=== PATIENT | female | born 2000 | race Caucasian/White ===

== ENCOUNTER 2024-05-25 08:42 | Emergency (ER) | payer SELFPAY ==
[2024-05-25 08:43] VITALS: BP 130/85; PULSE 84; RESP 20; TEMP 36.9; O2SAT 95; BMI 44.9
--- NOTE | 2024-05-25 08:45 | ECG_ITS ---
APPROVED REPORT Exam: Resting ECG HR:92 bpm ECG Measurements Heart Rate 92 AXES OH 145 P 59 QRSd 98 QRS 85 QT 340 T 37 QTc 390 Conclusion SINUS RHYTHM WITH SINUS ARRHYTHMIA NONSPECIFIC T-WAVE ABNORMALITY No STEMI Electronically signed by : PAYAM BROCK, 05/27/2024 04:43:17
--- NOTE | 2024-05-25 08:47 | HMH.EDGENADL ---
Discharge Plan Disposition Patient Disposition: Home, Self-Care Referrals Follow up/Referrals: Provider,Referral, MD [Referring] - See instructions Activity Restrictions/Add. Instructions Additional Instructions/Restrictions: Follow-up with primary care doctor. Please return the ED with any new, concerning, worsening symptoms. Clinical Impressions Clinical Impression: Psychogenic nonepileptic seizure Instructions Patient Instructions: DI for Syncope in Adults (Fainting), DI for Syncope in Children (Fainting) Print Language Print Language: [place] Discharge ED Provider: Cordell Church General Adult HPI General Chief complaint: Syncope Stated complaint: SEIZURES??? Time Seen by Provider: 05/25/24 08:47 History of Present Illness HPI narrative: This is a 23-year-old female with a history of psychogenic nonepileptic seizures who presents with a spell concerning for seizure at home. Mother witnessed it partially but patient recalls the whole event. States that she was on the phone with her boyfriend whenever she felt an episode coming on. Let herself down to the ground and did not hit her head. States that these episodes are characterized by large amplitude punching and kicking motions and biting. States that she retains awareness throughout the entire event. States that it lasted about 10 minutes and then resolved. States this episode was consistent with priors. Returned to baseline immediately after. Mother found the patient with blood on her face from tongue biting. No urinary incontinence. Called EMS for evaluation and was transported to emergency department for further care. Related Data Allergies Allergy/AdvReac Type Severity Reaction Status Date / Time Penicillins Allergy Rash Verified 05/25/24 09:[address] [facility] Disclaimer: The information contained in this section may have been updated after the patient was seen, as this information can be updated by other users. Social History Smoking Status: Current every day smoker alcohol intake: never current occupational status: other Travel in the last 8 weeks: Inside the [place] ROS Obtained: Yes All systems reviewed & no additional complaints except as documented Physical Exam General General appearance: alert and in no apparent distress Eye Eye exam: Present normal appearance, PERRL and EOMI Respiratory Respiratory exam: Present normal lung sounds bilaterally; Absent respiratory distress Cardiovascular Cardiovascular exam: Present regular rate and normal rhythm Abdominal Exam Abdominal exam: Present soft and distention; Absent tenderness, guarding or rebound Extremities Exam Extremities exam: Present normal inspection Neurological Exam Neurological exam: Present alert and oriented X3 Skin Skin exam: Present warm and dry Medical Decision Making Medical Records Medical records reviewed: Yes I reviewed the patient's medical records. Screening: Per USPSTF and CDC recommendations, given the prevalence of disease in our region, it is our hospital?s policy to screen for HIV and viral Hepatitis for all patients aged 18 and over and those with ongoing risk factors. [place] Inquiry Pt receiving controlled substance: No Vital Signs: 05/25/24 08:43 05/25/24 09:00 Temperature 98.5 F Temperature Source Oral Pulse Rate 70 Pulse Rate [Left Radial] 84 Respiratory Rate 20 14 Blood Pressure 115/77 Blood Pressure [Right Arm] 130/85 Blood Pressure Mean [Right Arm] 100 02 Sat by Pulse Oximetry 95 97 Oxygen Delivery Method Room Air Room Air ECG Data Tracing #1: I reviewed this ECG and interpreted as documented below: Sinus rhythm with sinus arrhythmia at a rate of 92, QTc 390, no STEMI Medical Decision Narrative: This is a 23-year-old female with a history of nonepileptic seizures who presents for evaluation of a spell concerning for seizure. On arrival, patient is afebrile, nontachycardic, hemodynamically stable, GCS 15, no focal neurological deficits. Differential diagnosis includes but is not limited to psychogenic nonepileptic seizures, epileptic seizures, arrhythmia. EKG was obtained upon arrival and independently interpreted by me as above. Features of patient's episode are consistent with nonepileptic seizures. Patient has also had EEG in the past to confirm nonepileptic seizures. Discussed with patient and mother who are reassured and patient was ultimately discharged to follow-up with PCP. No indication for CT imaging as patient has had multiple scans in the past which were unremarkable. No other indication for laboratory workup as patient was otherwise asymptomatic. Critical Care Critical Care Time Critical Care Time: No
--- NOTE | 2024-05-25 08:50 | PC.NURSE ---
BL seizure pads placed on ED stretcher. Pt hooked to monitor.
[2024-05-25 09:00] VITALS: BP 115/77; PULSE 70; RESP 14; O2SAT 97
[2024-05-25 09:15] VITALS: BP 115/77; PULSE 78; RESP 20; TEMP 36.8; O2SAT 98
== END 2024-05-25 09:16 | disposition home or self-care (01) ==
PROVIDERS: Emergency Provider Student in an Organized Health Care Education/Training Program; PCP Nurse Practitioner Family
DX: F44.5 Conversion disorder with seizures or convulsions (principal)
CPT/HCPCS: 93005; 99283

== ENCOUNTER 2024-11-07 12:00 | Emergency (ER) | payer OTHER, SELFPAY ==
[2024-11-07] VITALS (10 sets, daily range): BP systolic 115–136; BP diastolic 76–97; PULSE 77–98; RESP 13–18; TEMP 36.9; O2SAT 98–100; BMI 38.4
--- OUTSIDE RECORDS SUMMARY | 2024-11-07 12:07 | XMS_ITS | Encounter Summary ---
Author Organization [facility] Address [address] [place] [address] Care Team Providers Care Staff Research Scientist Name Role Phone Caty Neil APRN Primary Care Provider Encounter Details Date Type Department Care Team (Late st Contact Info) Description 10/13/2023 Community [facility] [address] [place] [address] Carley Hodges, DO [address] [place] [address] [address] [place] [address] Social History Tobacco Use Types Packs/Day Years Used Date Smoking Tobacco: Passive Smo ke Exposure - Never Smoker Comments Unknown Sex and Gender Information Value Date Recorded Sex Assigned at Not on file Legal Sex Female 8:20 PM EDT Gender Identity Not on file Sexual Orientation Not on file documented as of this encounter Plan of Treatment Not on file documented as of this encounter Visit Diagnoses Not on filedocumented in this encounter Care Teams Staff Research Scientist Relationship Specialty Start Date End Date Caty Neil APRN [address] [place] [address] PCP - General 09/19/20 documented as of this encounter
--- OUTSIDE RECORDS SUMMARY | 2024-11-07 12:07 | XMS_ITS | Encounter Summary ---
Author Organization [facility] Address [address] [place] [address] Care Team Providers Care Delinquency Prevention Officer Name Role Phone Caty Neil APRN Primary Care Provider [phone] Reason for Referral * Consultation (Routine) - Authorized Specialty Diagnoses / Procedures Referred By Jennie t Referred To Contact Psychiatry Diagnoses Conversion disorder with seizures or convulsions Sofie Anglin APRN [address] [place] [address] Phone: tel: fax: Referral ID Status Reason Start Date Expiration Date Visits Requested Visits Authorized [id number] Authorized Specialty Services Required 10/13/2023 04/13/2025 1 1 Encounter Details Date Type Department Care Team (Late st Contact Info) Description 10/13/2023 Community [facility] [address] [place] [address] Sofie Anglin APRN [address] [place] [address] 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) Social History Tobacco Use Types Packs/Day Years Used Date Smoking Tobacco: Passive Smo ke Exposure - Never Smoker Comments Unknown Sex and Gender Information Value Date Recorded Sex Assigned at Not on file Legal Sex Female 8:20 PM EDT Gender Identity Not on file Sexual Orientation Not on file documented as of this encounter Plan of Treatment Scheduled Referrals Name Type Priority Associated Diagnoses Order Schedule Ambulatory referral to Psychiatry Outpatient Referral Routine Conversion disorder with seizures or convulsions 1 Occurrences starting 10/13/2023 until 04/13/2025 documented as of this encounter Visit Diagnoses Diagnosis Conversion disorder with seizures or convulsions- Primary documented in this encounter Care Teams Delinquency Prevention Officer Relationship Specialty Start Date End Date Caty Neil APRN [address] [place] [address] PCP - General 09/19/20 documented as of this encounter
--- OUTSIDE RECORDS SUMMARY | 2024-11-07 12:07 | XMS_ITS | Clinical Summary ---
Author Organization Healthcare Address [address] [place] [address] Care Team Providers Care Senior Logistics Manager Name Role Phone Caty Neil APRN Primary Care Provider [phone] Encounters Date Type Department Care Team Description 09/19/2024 Telephone [facility] [address] [place] [address] Stevo Liz, PhD from Last 3 Months Family History Medical History Relation Name Comments COPD Other 1 Diabetes Other 2 Hypertension Other 3 Relation Name Status Comments Other 1 Other 2 Other 3 Social History Tobacco Use Types Packs/Day Years Used Date Smoking Tobacco: Passive Smo ke Exposure - Never Smoker Comments Unknown Sex and Gender Information Value Date Recorded Sex Assigned at Not on file Legal Sex Female 8:20 PM EDT Gender Identity Not on file Sexual Orientation Not on file Last Filed Vital Signs Vital Sign Reading Time Taken Comments Blood Pressure 112/77 12/26/2019 1:05 PM EDT Pulse 81 12/26/2019 1:05 PM EDT Temperature 36.6 C (97.9 F) 12/26/2019 1:05 PM EDT Respiratory Rate - - Oxygen Saturation - - Inhaled Oxygen Concentration - - Weight 101 kg (223 lb 5.2 oz) 12/26/2019 1:05 PM EDT Height 166.3 cm (5' 5.47 ) 12/26/2019 1:05 PM ED T Body Mass Index 36.63 12/26/2019 1:05 PM EDT Plan of Treatment Health Maintenance Due Date Last Done Comments [facility]-Depression Screening 2002 [facility]-/Child/Adol SDOH Screenings 2002 [facility]-Varicella Vaccines (1 of 2 - 13+ 2-dose series) 12/25/2015 HPV Vaccines (1 - 3-dose series) 2017 [facility]- SDOH Screenings 2020 [facility]-Adult SDOH Screenings 2020 [facility]-DTaP,Tdap,and Td Vaccine s (1 - Tdap) 2021 [facility]-Hepatitis B Vaccines (1 of 3 - 19+ 3-dose series) 2021 [facility]-Pap Smear 12/25/2023 [id number] Vaccine (1 - 20 24-25 season) 2024 [facility]-Influenza Vaccine (Seas[place] n Ended) 2025 02/09/2022 [facility]-Zoster Vaccines (1 of 2) 2052 [facility]-HIB Vaccines Aged Out No longer e ligible based on patient's age to complete this topic [facility]-Hepatitis A Vaccines Aged Out No longer eligible based on patient's age to complete this topic [facility]-IPV Vaccines Aged Out No longer e ligible based on patient's age to complete this topic [facility]-Pneumococcal Vaccine: Pediatrics (0 to 5 Years) and At-Risk Patients (6 to 49 Years) Aged Out No long er eligible based on patient's age to complete this topic [facility]-Rotavirus Vaccines Aged Out No lo nger eligible based on patient's age to complete this topic Insurance [employer] [facility] MEDICAID Care Teams Senior Logistics Manager Relationship Specialty Start Date End Date Caty Neil APRN [address] [place] [address] PCP - General 09/19/20
--- OUTSIDE RECORDS SUMMARY | 2024-11-07 12:07 | XMS_ITS | Encounter Summary ---
Author Organization [facility] Address [address] [place] [address] Care Team Providers Care Gear Design Engineer Name Role Phone Caty Neil APRN Primary Care Provider Encounter Details Date Type Department Care Team (Late st Contact Info) Description 09/19/2024 Telephone [facility] [address] [place] [address] Stevo Liz, PhD [address] [place] [address] Social History Tobacco Use Types Packs/Day Years Used Date Smoking Tobacco: Passive Smo ke Exposure - Never Smoker Comments Unknown Sex and Gender Information Value Date Recorded Sex Assigned at Not on file Legal Sex Female 8:20 PM EDT Gender Identity Not on file Sexual Orientation Not on file documented as of this encounter Miscellaneous Notes * Telephone Encounter - Germán Singh - 09/19/2024 2:01 PM EDT Called patient to confirm 5-19 neuropsych appt. No ans, recording says not available now. documented in this encounter Plan of Treatment Not on file documented as of this encounter Visit Diagnoses Not on filedocumented in this encounter Care Teams Gear Design Engineer Relationship Specialty Start Date End Date Caty Neil APRN [address] [place] [address] PCP - General 09/19/20 documented as of this encounter
--- NOTE | 2024-11-07 12:45 | PC.NURSE ---
pt voiced she does not want seizure pads placed and PA was ok with decision
--- NOTE | 2024-11-07 12:51 | CT_ITS ---
PROCEDURE INFORMATION: Exam: CT Head Without Contrast Exam date and time: 11/07/2024 2:12 PM Age: 23 years old Clinical indication: Condition or disease; Convulsions or seizures; Additional info: Seizure TECHNIQUE: Imaging protocol: Computed tomography of the head without contrast. Radiation optimization: All CT scans at this facility use at least one of these dose optimization techniques: automated exposure control; mA and/or kV adjustment per patient size (includes targeted exams where dose is matched to clinical indication); or iterative reconstruction. COMPARISON: No relevant prior studies available. FINDINGS: Brain: Normal. No hemorrhage. Unremarkable white matter. No mass effect. Cerebral ventricles: No ventriculomegaly. Paranasal sinuses: Visualized sinuses are unremarkable. No fluid levels. Mastoid air cells: Visualized mastoid air cells are well aerated. Bones: Unremarkable. No acute fracture. Soft tissues: Unremarkable. IMPRESSION: No acute intracranial abnormality.
--- NOTE | 2024-11-07 13:06 | ED_ITS ---
<Statement entered by Giuseppe Schultz MD - 11/07/24 17:36> I was consulted by the AGATA, and we discussed the complexity of problems being addressed. I approved the treatment and management plan for this patient's care in the emergency department, thus performing a substantial portion of the medical decision making. I independently evaluated and performed a physical exam on this patient. likely PNES vs anxiety attacks as is completely aware during episodes, no post-ictal. reassuring imaging and labs today... She has follow-up with neurologist outpatient. Her seizure precautions per [facility] law. Give her neurology follow-up appears well. Strict return precautions were discussed Giuseppe Schultz MD Discharge Plan Disposition Patient Disposition: Home, Self-Care Prescriptions Prescriptions: New levetiracetam [Keppra] 500 mg tablet 500 mg PO BID Qty: 14 0RF No Action phentermine 37.5 mg tablet PO DAILY Patient Comments: TAKE ONE TABLET BY MOUTH EVERY DAY BEFORE breakfast Referrals Follow up/Referrals: Tania Mckeon APRN [Primary Care Provider, Medical] - See instructions Clinical Impressions Clinical Impression: Seizure disorder Stand Alone Forms Stand Alone Forms: Work/School Release Instructions Patient Instructions: DI for Seizure Disorder -- Adult Print Language Print Language: Icelandic Discharge ED Provider: Giuseppe Schultz General Adult HPI <Tania Mckeon (ED)DHARMESH - Last Filed: 11/07/24 17:12> General Chief complaint: Headache Stated complaint: AO 11/06/24. 45 min seizure. Severe head/body pain Time Seen by Provider: 11/07/24 12:25 Mode of Arrival: Ambulatory Source of Information: Patient Description of Symptoms (Recalled from ER Triage Doc. by RN): PT presents to the ED for evaluation of a headache. PT stated she had a 45 minute seizure last night. Pt stated it was witnessed, Stated that she was seen banging her head on floor. Denies blood thinners. Denies daily meds r/t seizures. PT rates pain 11/15. PT stated she took 500mg Tylenol and 500mg Ibuprofen. History of Present Illness HPI narrative: 23-year-old female presents to the ED today for complaint of having a seizure at about 4 AM. She states that lasted 45 minutes. She has been having night terrors and says this has a lot to do with her having seizures. She also is having manic bipolar episodes and says this is a problem as well. She has been under a lot of stress and says stress causes her seizures. She says it was witnessed and she was having a violent seizure. She says typically her seizures are not violent if they are silent. She does not take daily medications for seizures but has been having seizures since the beginning of October at least once a week. She relates this to stress at work or heat. She denies any postictal. Recently with her seizures. She says she comes right out of them and gets up and walks around like she is normal. She denies recent illness. She has been seeing neurologist that have not given her any seizure medications. She has a neurology appointment with [facility] in January. Related Data Home Medications ?Medication ?Instructions ?Recorded ?Confirmed phentermine 37.5 mg tablet mg PO DAILY 10/25/24 Previous Rx's ?Medication ?Instructions ?Recorded levetiracetam 500 mg tablet 500 mg PO BID #14 tabs 07/03 ([facility]) Allergies Allergy/AdvReac Type Severity Reaction Status Date / Time Penicillins Allergy Rash Verified 10/25/24 16:37 [facility] <Tania Mckeon (ED), [place] LO DRIVER - Last Filed: 11/07/24 17:12> [facility] Disclaimer: The information contained in this section may have been updated after the patient was seen, as this information can be updated by other users. Social History Smoking Status: Current every day smoker alcohol intake: never current occupational status: other Travel in the last 8 weeks?: Inside the [place] Have you lived/traveled outside US in past 30 days?: No Contact w/someone who lives/traveled outside US past 30 days?: No Exposure to someone with infectious disease in past 14 days?: No Do you have a fever (greater than 100.4 F or 38 C)?: No Have you tested positive for COVID-19?: No Exposed to someone with COVID-19 in past 14 days?: No Do you have a sore throat?: No Do you have a cough?: No Do you have any weakness?: No Do you have any diarrhea?: No Are you experiencing any unusual bleeding?: No Do you have any muscle aches/pain?: No Do you have any abdominal pain?: No Are you experiencing loss of taste or smell?: No <Tania Kilmadie (ED), [place] LO DRIVER - Last Filed: 11/07/24 17:12> ROS Obtained: Yes Systems reviewed as appropriate & no additional complaints except as documented Constitutional Constitutional: Reports as per HPI Physical Exam <Tania Kilmadie (ED), [place] LO DRIVER - Last Filed: 11/07/24 17:12> General General appearance: alert and in no apparent distress Head Head exam: atraumatic and normocephalic Eye Eye exam: Present PERRL and EOMI ENT ENT exam: Present normal oropharynx and mucous membranes moist Neck Neck exam: Present normal inspection, full ROM and trachea midline Chest Chest inspection: Present normal inspection Respiratory Respiratory exam: Present normal lung sounds bilaterally Cardiovascular Cardiovascular exam: Present regular rate, normal rhythm, normal heart sounds, +S1 and +S2 Abdominal Exam Abdominal exam: Present soft and normal bowel sounds Extremities Exam Extremities exam: Present normal inspection, full ROM and normal capillary refill Neurological Exam Neurological exam: Present alert, oriented X3 and normal gait Skin Skin exam: Present warm, dry and intact Medical Decision Making <Tania Popeyemadie (ED), [place] LO DRIVER - Last Filed: 11/07/24 17:12> Medical Records Medical records reviewed: Yes I reviewed the patient's medical records. Screening: Per USPSTF and CDC recommendations, given the prevalence of disease in our region, it is our hospital?s policy to screen for HIV and viral Hepatitis for all patients aged 18 and over and those with ongoing risk factors. Colby Inquiry Pt receiving controlled substance: No Colby was queried for this patient: No Vital Signs: 11/07/24 12:13 11/07/24 12:30 11/07/24 13:00 Temperature 98.4 F Temperature Source Oral Pulse Rate 93 H 86 Pulse Rate [Right] 98 H Respiratory Rate 16 14 16 Blood Pressure 136/88 119/92 H Blood Pressure [Right Arm] 124/97 H Blood Pressure Mean 96 Blood Pressure Mean [Right Arm] 106 02 Sat by Pulse Oximetry 98 100 99 Oxygen Delivery Method Room Air Room Air 11/07/24 13:30 11/07/24 14:00 11/07/24 14:30 Temperature Temperature Source Pulse Rate 87 85 79 Pulse Rate [Right] Respiratory Rate 13 15 16 Blood Pressure 126/85 132/94 H 117/88 Blood Pressure [Right Arm] Blood Pressure Mean Blood Pressure Mean [Right Arm] 02 Sat by Pulse Oximetry 98 100 100 Oxygen Delivery Method Room Air Room Air Room Air 11/07/24 15:00 11/07/24 15:30 11/07/24 16:00 Temperature Temperature Source Pulse Rate 92 H 77 77 Pulse Rate [Right] Respiratory Rate 16 14 16 Blood Pressure 123/82 115/76 135/91 H Blood Pressure [Right Arm] Blood Pressure Mean Blood Pressure Mean [Right Arm] 02 Sat by Pulse Oximetry 99 100 100 Oxygen Delivery Method Room Air 11/07/24 17:26 Temperature 98.4 F Temperature Source Pulse Rate 77 Pulse Rate [Right] Respiratory Rate 18 Blood Pressure 135/91 H Blood Pressure [Right Arm] Blood Pressure Mean Blood Pressure Mean [Right Arm] 02 Sat by Pulse Oximetry Oxygen Delivery Method Room Air Lab Data Lab Results 11/07/24 13:38: Urine HCG, Qual Negative, Urine Opiates Screen Negative, Urine Methadone Screen Negative, Ur Barbituates Screen Negative, Ur Phencyclidine Scrn Negative, Ur Amphetamines Screen Negative, U Benzodiazepines Scrn Negative, Urine Cocaine Screen Negative, U Marijuana (THC) Screen Negative 11/07/24 13:42: Urine Color Yellow, Urine Appearance Clear, Urine pH 6.5, Ur Specific [place] 1.025, Urine Protein Negative, Urine Glucose (UA) Negative, Urine Ketones Trace, Urine Blood Negative, Urine Nitrate Negative, Urine Bilirubin Negative, Urine Urobilinogen 1.0, Ur Leukocyte Esterase Negative, Urine RBC None, Urine WBC 3-5, Ur Squamous Epith Cells 10-20, Urine Bacteria Trace 11/07/24 13:47: WBC 8.1, RBC 5.50 H, Hgb 15.8, Hct 47.8 H, MCV 86.9, MCH 28.7, MCHC 33.1, RDW 13.2, Plt Count 379, MPV 10.1, Neut % (Auto) 54.4, Lymph % (Auto) 35.6, [place] % (Auto) 7.4, Eos % (Auto) 1.5, Baso % (Auto) 0.9, Neut # (Auto) 4.4, Lymph # (Auto) 2.9, [place] # (Auto) 0.6, Eos # (Auto) 0.1, Baso # (Auto) 0.1, Sodium 141, Potassium 3.9, Chloride 101, Carbon Dioxide 32 H, Anion Gap 11.9, BUN 8, Creatinine 0.80, Estimated Creat Clear 184, Estimated GFR 91, Est GFR ( Amer) 110, Glucose 93, Calcium 10.0, Magnesium 2.1, Total Bilirubin 1.0, AST 43 H, ALT 57, Alkaline Phosphatase 57, Total Creatine Kinase 209 H, Total Protein 7.9, Albumin 4.6, Globulin 3.3 H, Albumin/Globulin Ratio 1.4, Lipase 67 11/07/24 13:47 11/07/24 13:47 Orders (Tests/Meds): ORDERS Category Date Time Status CT head/brain wo con Stat Cat Scan 11/07/24 12:51 Completed CBC [Complete Blood Count Auto Diff] Stat Lab 11/07/24 13:47 Completed Comprehensive Metabolic Panel Stat Lab 11/07/24 13:47 Completed Creatine Kinase Stat Lab 11/07/24 13:47 Completed Drug Screen,Urine Stat Lab 11/07/24 13:38 Completed Lipase Stat Lab 11/07/24 13:47 Completed Magnesium Stat Lab 11/07/24 13:47 Completed Urinalysis and Microscopic Stat Lab 11/07/24 13:42 Completed Urine , HCG Qual. Stat Lab 11/07/24 13:38 Completed Medical Decision Narrative: patient is a 23-year-old female presenting to the emergency department for evaluation of seizure she had this morning at 4 AM. Patient is hemodynamically stable and nontoxic-appearing upon arrival, afebrile. Differential diagnosis includes seizure disorder, schizophrenia versus manic bipolar psychosis episode. Workup will be conducted with hematologic labs, specific imaging. Initial inventions include crystalloid bolus, analgesics. Initial workup reviewed by [place] hematologic labs are remarkable for nothing acute. Please see formal radiology report for full read. Upon repeat evaluation patient's pain is improved. Patient has follow-up with neurology in January. She is to keep that appointment. Patient safe for discharge home. <Giuseppe Schultz MD - Last Filed: 11/07/24 17:36> Vital Signs: 11/07/24 12:13 11/07/24 12:30 11/07/24 13:00 Temperature 98.4 F Temperature Source Oral Pulse Rate 93 H 86 Pulse Rate [Right] 98 H Respiratory Rate 16 14 16 Blood Pressure 136/88 119/92 H Blood Pressure [Right Arm] 124/97 H Blood Pressure Mean 96 Blood Pressure Mean [Right Arm] 106 02 Sat by Pulse Oximetry 98 100 99 Oxygen Delivery Method Room Air Room Air 11/07/24 13:30 11/07/24 14:00 11/07/24 14:30 Temperature Temperature Source Pulse Rate 87 85 79 Pulse Rate [Right] Respiratory Rate 13 15 16 Blood Pressure 126/85 132/94 H 117/88 Blood Pressure [Right Arm] Blood Pressure Mean Blood Pressure Mean [Right Arm] 02 Sat by Pulse Oximetry 98 100 100 Oxygen Delivery Method Room Air Room Air Room Air 11/07/24 15:00 11/07/24 15:30 11/07/24 16:00 Temperature Temperature Source Pulse Rate 92 H 77 77 Pulse Rate [Right] Respiratory Rate 16 14 16 Blood Pressure 123/82 115/76 135/91 H Blood Pressure [Right Arm] Blood Pressure Mean Blood Pressure Mean [Right Arm] 02 Sat by Pulse Oximetry 99 100 100 Oxygen Delivery Method Room Air 11/07/24 17:26 Temperature 98.4 F Temperature Source Pulse Rate 77 Pulse Rate [Right] Respiratory Rate 18 Blood Pressure 135/91 H Blood Pressure [Right Arm] Blood Pressure Mean Blood Pressure Mean [Right Arm] 02 Sat by Pulse Oximetry Oxygen Delivery Method Room Air Lab Data Lab Results 11/07/24 13:38: Urine HCG, Qual Negative, Urine Opiates Screen Negative, Urine Methadone Screen Negative, Ur Barbituates Screen Negative, Ur Phencyclidine Scrn Negative, Ur Amphetamines Screen Negative, U Benzodiazepines Scrn Negative, Urine Cocaine Screen Negative, U Marijuana (THC) Screen Negative 11/07/24 13:42: Urine Color Yellow, Urine Appearance Clear, Urine pH 6.5, Ur Specific [place] 1.025, Urine Protein Negative, Urine Glucose (UA) Negative, Urine Ketones Trace, Urine Blood Negative, Urine Nitrate Negative, Urine Bilirubin Negative, Urine Urobilinogen 1.0, Ur Leukocyte Esterase Negative, Urine RBC None, Urine WBC 3-5, Ur Squamous Epith Cells 10-20, Urine Bacteria Trace 11/07/24 13:47: WBC 8.1, RBC 5.50 H, Hgb 15.8, Hct 47.8 H, MCV 86.9, MCH 28.7, MCHC 33.1, RDW 13.2, Plt Count 379, MPV 10.1, Neut % (Auto) 54.4, Lymph % (Auto) 35.6, [place] % (Auto) 7.4, Eos % (Auto) 1.5, Baso % (Auto) 0.9, Neut # (Auto) 4.4, Lymph # (Auto) 2.9, [place] # (Auto) 0.6, Eos # (Auto) 0.1, Baso # (Auto) 0.1, Sodium 141, Potassium 3.9, Chloride 101, Carbon Dioxide 32 H, Anion Gap 11.9, BUN 8, Creatinine 0.80, Estimated Creat Clear 184, Estimated GFR 91, Est GFR ( Amer) 110, Glucose 93, Calcium 10.0, Magnesium 2.1, Total Bilirubin 1.0, AST 43 H, ALT 57, Alkaline Phosphatase 57, Total Creatine Kinase 209 H, Total Protein 7.9, Albumin 4.6, Globulin 3.3 H, Albumin/Globulin Ratio 1.4, Lipase 67 Orders (Tests/Meds): ORDERS Category Date Time Status CT head/brain wo con Stat Cat Scan 11/07/24 12:51 Completed CBC [Complete Blood Count Auto Diff] Stat Lab 11/07/24 13:47 Completed Comprehensive Metabolic Panel Stat Lab 11/07/24 13:47 Completed Creatine Kinase Stat Lab 11/07/24 13:47 Completed Drug Screen,Urine Stat Lab 11/07/24 13:38 Completed Lipase Stat Lab 11/07/24 13:47 Completed Magnesium Stat Lab 11/07/24 13:47 Completed Urinalysis and Microscopic Stat Lab 11/07/24 13:42 Completed Urine , HCG Qual. Stat Lab 11/07/24 13:38 Completed Critical Care <Giuseppe Schultz MD - Last Filed: 11/07/24 17:36> Critical Care Time Critical Care Time: No
--- NOTE | 2024-11-07 13:40 | PC.NURSE ---
patient ambulatory to bathroom, provides urine sample.
[2024-11-07 13:53] LABS: Microscopic, Urine URINE MICROSCOPIC (MICROSCOPIC)
[2024-11-07 13:59] LABS: Color,Urine YELLOW (Yellow); Glucose,Urine (UA) Negative (Negative); Ketones,Urine TRACE (Negative); Leukocyte Esterase,Urine Negative (Negative); PH,Urine 6.5 (5.0-8.5); Protein,Urine Negative (Negative); Specific Gravity, Urine 1.025 (1.005-1.030); Urobilinogen,Urine 1.0 EU/dl (0.2)
[2024-11-07 14:00] LABS: Urine Pregnancy, HCG Qual. Negative (Negative)
[2024-11-07 14:01] LABS: Albumin Level 4.6 g/dl (3.5-5.0); Chloride 101 mmol/L (98-107); Hematocrit 47.8 % (37.0-47.0); Hemoglobin 15.8 g/dL (12.2-16.2); Immature Granulocytes % 0.2 %; Mean Corpuscular HGB Conc 33.1 g/dL (31.8-35.4); Mean Corpuscular Hemoglobin 28.7 pg (27.0-31.2); Mean Corpuscular Volume 86.9 fl (81-99); Nucleated Red Blood Cells % 0 %; Platelet Count 379 K/mm3 (142-424); Red Blood Count 5.50 M/mm3 (4.20-5.40); Red Cell Distribution Width-SD 42.3 fL; Sodium 141 mmol/L (136-145); White Blood Count 8.1 K/mm3 (4.8-10.8)
[2024-11-07 14:02] LABS: Potassium 3.9 mmoL/L (3.5-5.1)
[2024-11-07 14:03] LABS: Creatine Kinase 209 U/L (30-135)
[2024-11-07 14:04] LABS: Alanine Aminotransferase 57 U/L (12-78); Albumin/Globulin Ratio 1.4 (1.1-1.8); Alkaline Phosphatase 57 U/L (38-126); Anion Gap 11.9 mEq/L (5-15); Aspartate Amino Transferase 43 U/L (14-36); Bilirubin,Total 1.0 mg/dl (0.2-1.3); Blood Urea Nitrogen 8 mg/dl (7-17); Calcium 10.0 mg/dl (8.4-10.2); Carbon Dioxide 32 mmol/L (22.0-30.0); Creatinine Clearance Estimated 184 mL/min (50-200); Creatinine,Serum 0.80 mg/dl (0.52-1.04); Estimated Glomerular Filt Rate 91 ml/min (>60); GFR (African American) 110 ML/MIN (>60); Globulin 3.3 g/dL (1.3-3.2); Glucose 93 mg/dl (74-100); Lipase 67 U/L (23-300); Total Protein,Serum 7.9 g/dl (6.3-8.2)
[2024-11-07 14:04] LABS: Bilirubin,Urine Negative (Negative)
[2024-11-07 14:05] LABS: Magnesium 2.1 mg/dl (1.6-2.3)
[2024-11-07 14:07] LABS: Bacteria,Urine Trace /lpf
[2024-11-07 14:11] LABS: Amphetamine/Metha Screen,Urine Negative ng/ml (<1000); Benzodiazepines Screen,Urine Negative ng/ml (<200)
[2024-11-07 14:12] LABS: Barbiturates Screen,Urine Negative ng/ml (<200)
[2024-11-07 14:14] LABS: Methadone Screen,Urine Negative ng/ml (<300)
[2024-11-07 14:15] LABS: Opiate Screen,Urine Negative ng/ml (<300); Phencyclidine Screen,Urine Negative ng/ml (<25)
--- NOTE | 2024-11-07 15:50 | PC.NURSE ---
I called and spoke with radiology to check on the pts scans. They are sending a request to the radiologist.
== END 2024-11-07 17:27 | disposition home or self-care (01) ==
PROVIDERS: Emergency Provider Emergency Medicine; PCP Nurse Practitioner
DX: R56.9 Unspecified convulsions (principal); R51.9 Headache, unspecified
CPT/HCPCS: 70450; 80053; 80307; 81001; 81025; 82550; 83690; 83735; 85025; 99284

== ENCOUNTER 2024-11-13 10:53 | Emergency (ER) | payer OTHER, SELFPAY ==
[2024-11-13 10:55] VITALS: BP 115/85; PULSE 90; RESP 20; TEMP 36.8; O2SAT 100; BMI 20.7
--- OUTSIDE RECORDS SUMMARY | 2024-11-13 10:57 | XMS_ITS | Encounter Summary ---
Author Organization [facility] Address [address] [place] [address] Care Team Providers Care Assistant Shift Supervisor Name Role Phone Caty Neil APRN Primary Care Provider [phone] Reason for Referral * Consultation (Routine) - Authorized Specialty Diagnoses / Procedures Referred By Jennie t Referred To Contact Psychiatry Diagnoses Conversion disorder with seizures or convulsions Sofie Anglin APRN [address] [place] [address] Phone: tel: fax: Referral ID Status Reason Start Date Expiration Date Visits Requested Visits Authorized [id number] Authorized Specialty Services Required 10/13/2023 04/13/2025 1 1 Encounter Details Date Type Department Care Team (Late st Contact Info) Description 10/13/2023 Community [facility] [address] [place] [address] Sofie Anglin APRN [address] [place] [address] Conversion disorder with seizures or [...] Primary documented in this encounter Care Teams Assistant Shift Supervisor Relationship Specialty Start Date End Date Caty Neil APRN [address] [place] [address] PCP - General 09/19/20 documented as of this encounter
--- OUTSIDE RECORDS SUMMARY | 2024-11-13 10:57 | XMS_ITS | Encounter Summary ---
Author Organization [facility] Address [address] [place] [address] Care Team Providers Care Claims Adjustor Name Role Phone Caty Neil APRN Primary Care Provider Encounter Details Date Type Department Care Team (Late st Contact Info) Description 10/13/2023 [facility] [address] [place] [address] Carley Hodges, DO [address] [place] [address] [address] [place] [address] Social History Tobacco Use Types [...] on filedocumented in this encounter Care Teams Claims Adjustor Relationship Specialty Start Date End Date Caty Neil APRN [address] [place] [address] PCP - General 09/19/20 documented as of this encounter
--- OUTSIDE RECORDS SUMMARY | 2024-11-13 10:57 | XMS_ITS | Clinical Summary ---
Author Organization Healthcare Address [address] [place] [address] Care Team Providers Care Slide Forming Machine Tender Name Role Phone Caty Neil APRN Primary Care Provider [phone] Encounters Date Type Department Care Team Description 09/19/2024 Telephone [facility] [address] [place] [address] Stevo Liz, PhD from Last [...] 19+ 3-dose series) 2021 [facility]-Pap Smear 12/25/2023 [id number] Vaccine (1 - 20 24-25 season) 2024 [facility]-Influenza Vaccine (#1) 2025 02/09/2022 [facility]-Zoster Vaccines (1 of 2) [...] age to complete this topic Insurance [employer] [facility] MEDICAID Care Teams Slide Forming Machine Tender Relationship Specialty Start Date End Date Caty Neil APRN [address] [place] [address] PCP - General 09/19/20
--- OUTSIDE RECORDS SUMMARY | 2024-11-13 10:57 | XMS_ITS | Encounter Summary ---
Author Organization [facility] Address [address] [place] [address] Care Team Providers Care Aquaculture Worker Name Role Phone Caty Neil APRN Primary Care Provider [phone] Encounter Details Date Type Department Care Team (Late st Contact Info) Description 09/19/2024 Telephone [facility] [address], [address] [place] [address] Stevo Liz, PhD [address] [place] [address] Social History Tobacco Use Types [...] on filedocumented in this encounter Care Teams Aquaculture Worker Relationship Specialty Start Date End Date Caty Neil APRN [address] [place] [address] PCP - General 09/19/20 documented as of this encounter
--- NOTE | 2024-11-13 10:59 | HMH.EDGENADL ---
Discharge Plan Disposition Patient Disposition: Home, Self-Care Prescriptions Prescriptions: No Action phentermine 37.5 mg tablet PO DAILY Patient Comments: TAKE ONE TABLET BY MOUTH EVERY DAY BEFORE breakfast levetiracetam [Keppra] 500 mg tablet 500 mg PO BID Qty: 14 0RF Referrals Follow up/Referrals: Norma Spaulding APRN [Primary Care Provider, Medical] - See instructions Activity Restrictions/Add. Instructions Additional Instructions/Restrictions: No emergent medical condition identified today please continue to follow-up with your psychiatrist and neurologist outpatient. Clinical Impressions Clinical Impression: Psychogenic nonepileptic seizure Stand Alone Forms Stand Alone Forms: Work/School Release Print Language Print Language: Irish Discharge ED Provider: Guanakito Nava General Adult HPI General Stated complaint: Seizure Time Seen by Provider: 11/13/24 10:56 History of Present Illness HPI narrative: Patient is a 23-year-old female with a long history of psychogenic nonepileptic seizures she states she has had MRIs in the past and CAT scans and EEG monitors and has been diagnosed with this for many years. She presents today with another episode today. She is now at her baseline she denies any headache denies any significant head injury she denies any neurologic symptoms changes in medications or drug use etc. She states she just needs a note for work. Related Data Home Medications ?Medication ?Instructions ?Recorded ?Confirmed phentermine 37.5 mg tablet mg PO DAILY 10/25/24 10/25/24 Previous Rx's ?Medication ?Instructions ?Recorded levetiracetam 500 mg tablet 500 mg PO BID #14 tabs 11/07/24 (Keppra) Allergies Allergy/AdvReac Type Severity Reaction Status Date / Time Penicillins Allergy Rash Verified 10/25/24 16:37 [facility] Disclaimer: The information contained in this section may have been updated after the patient was seen, as this information can be updated by other users. Social History Smoking Status: Current every day smoker alcohol intake: never current occupational status: other Travel in the last 8 weeks?: Inside the [place] Have you lived/traveled outside US in past 30 days?: No Contact w/someone who lives/traveled outside US past 30 days?: No Exposure to someone with infectious disease in past 14 days?: No Do you have a fever (greater than 100.4 F or 38 C)?: No Have you tested positive for COVID-19?: No Exposed to someone with COVID-19 in past 14 days?: No Do you have a sore throat?: No Do you have a cough?: No Do you have any weakness?: No Do you have any diarrhea?: No Are you experiencing any unusual bleeding?: No Do you have any muscle aches/pain?: No Do you have any abdominal pain?: No Are you experiencing loss of taste or smell?: No ROS Obtained: Yes All systems reviewed & no additional complaints except as documented Physical Exam General General appearance: alert and in no apparent distress Respiratory Respiratory exam: Present normal lung sounds bilaterally Cardiovascular Cardiovascular exam: Present regular rate Neurological Exam Neurological exam: Present alert, oriented X3, CN II-XII intact, normal gait and reflexes normal; Absent motor sensory deficit Medical Decision Making Medical Records Screening: Per USPSTF and CDC recommendations, given the prevalence of disease in our region, it is our hospital?s policy to screen for HIV and viral Hepatitis for all patients aged 18 and over and those with ongoing risk factors. Colby Inquiry Pt receiving controlled substance: No Medical Decision Narrative: Very well-appearing 23-year-old female with GCS of 15 normal neurologic exam presents today with an episode consistent with her psychogenic nonepileptic seizures for which she has been extensively evaluated in the past. She is [place] CT head negative and Nexus negative there is no evidence of any significant trauma no indication for any CT imaging from an emergency standpoint today also she is at her normal state of health and has not had any medication changes nausea vomiting diarrhea or any other suspicion to suggest that she may have laboratory abnormalities therefore blood work is not indicated. Patient was given a work note and discharged in a stable condition with advised to follow-up with primary care doctor and neurologist. Critical Care Critical Care Time Critical Care Time: No
[2024-11-13 11:00] VITALS: BP 118/78; PULSE 68; RESP 18; TEMP 36.8; O2SAT 98
== END 2024-11-13 11:07 | disposition home or self-care (01) ==
PROVIDERS: Emergency Provider Student in an Organized Health Care Education/Training Program; PCP Nurse Practitioner Family
DX: F44.5 Conversion disorder with seizures or convulsions (principal); F17.210 Nicotine dependence, cigarettes, uncomplicated
CPT/HCPCS: 99283

== ENCOUNTER 2024-11-16 19:21 | Emergency (ER) | payer OTHER, SELFPAY ==
--- OUTSIDE RECORDS SUMMARY | 2024-11-16 19:48 | XMS_ITS | Encounter Summary ---
Author Organization [facility] Address [address] [place] [address] Care Team Providers Care Hoop Machine Operator Name Role Phone Caty Neil APRN Primary Care Provider Reason for Referral * Consultation (Routine) - Authorized Specialty Diagnoses / Procedures Referred By Jennie t Referred To Contact Psychiatry Diagnoses Conversion disorder with seizures or convulsions Sofie Anglin APRN [address] [place] [address] Phone: tel: fax: Referral ID Status Reason Start Date Expiration Date Visits Requested Visits Authorized [id number] Authorized Specialty Services Required 10/13/2023 04/13/2025 1 1 Encounter Details Date Type Department Care Team (Late st Contact Info) Description 10/13/2023 Community [facility] [address] [place] [address] Sofie Anglin APRN [address] [place] [address] Conversion disorder with seizures or [...] Primary documented in this encounter Care Teams Hoop Machine Operator Relationship Specialty Start Date End Date Caty Neil APRN [address] [place] [address] PCP - General 09/19/20 documented as of this encounter
--- OUTSIDE RECORDS SUMMARY | 2024-11-16 19:48 | XMS_ITS | Clinical Summary ---
Author Organization Healthcare Address [address] [place] [address] Care Team Providers Care Engine Repairer Production Name Role Phone Caty Neil APRN Primary Care Provider [phone] Encounters Date Type Department Care Team Description 09/19/2024 Telephone [facility] [address] [place] [address] Stevo Liz, PhD from Last [...] Date Last Done Comments [facility]-Depression Screening 2002 [facility]-Infant/Child/Adol SDOH Screenings 2002 [facility]-Varicella Vaccines (1 of 2 - 13+ 2-dose series) 12/25/2015 HPV Vaccines (1 - 3-dose series) 2017 [facility]- SDOH Screenings 2020 [facility]-Adult SDOH Screenings 2020 [facility]-DTaP,Tdap,and Td Vaccine s (1 - Tdap) 2021 [facility]-Hepatitis B Vaccines (1 of 3 - 19+ 3-dose series) 2021 [facility]-Pap Smear 12/25/2023 [id number] Vaccine (1 - 20 24-25 season) 2024 [...] age to complete this topic Insurance [facility] [facility] MEDICAID Care Teams Engine Repairer Production Relationship Specialty Start Date End Date Caty Neil APRN [address] [place] [address] PCP - General 09/19/20
--- OUTSIDE RECORDS SUMMARY | 2024-11-16 19:48 | XMS_ITS | Encounter Summary ---
Author Organization [facility] Address [address] [place] [address] Care Team Providers Care Pigeon Fancier Name Role Phone Caty Neil APRN Primary Care Provider Encounter Details Date Type Department Care Team (Late st Contact Info) Description 10/13/2023 Community Orders Community Practice [address] [place] [address] Carley Hodges, DO [address] [place] [address] [address] [place] [address] Social History Tobacco Use Types [...] on filedocumented in this encounter Care Teams Pigeon Fancier Relationship Specialty Start Date End Date Caty Neil APRN [address] [place] [address] PCP - General 09/19/20 documented as of this encounter
--- OUTSIDE RECORDS SUMMARY | 2024-11-16 19:48 | XMS_ITS | Encounter Summary ---
Author Organization [facility] Address [address] [place] [address] Care Team Providers Care Analytical Technician Name Role Phone Caty Neil APRN Primary Care Provider [phone] Encounter Details Date Type Department Care Team (Late st Contact Info) Description 09/19/2024 Telephone [facility] [address], [address] [place] [address] Stevo Liz, PhD [address] [place] [address] Social History Tobacco Use Types [...] on filedocumented in this encounter Care Teams Analytical Technician Relationship Specialty Start Date End Date Caty Neil APRN [address] [place] [address] PCP - General 09/19/20 documented as of this encounter
[2024-11-16 19:50] VITALS: BP 140/78; PULSE 113; RESP 20; TEMP 36.7; O2SAT 100; BMI 39.3
--- NOTE | 2024-11-16 19:50 | HMH.EDGENADL ---
Discharge Plan Disposition Patient Disposition: Home, Self-Care Prescriptions Prescriptions: No Action phentermine 37.5 mg tablet PO DAILY Patient Comments: TAKE ONE TABLET BY MOUTH EVERY DAY BEFORE breakfast levetiracetam [Keppra] 500 mg tablet 500 mg PO BID Qty: 14 0RF Referrals Follow up/Referrals: Tania Mckeon APRN [Primary Care Provider, Medical] - See instructions Activity Restrictions/Add. Instructions Additional Instructions/Restrictions: Due to being evaluated emergency department for seizure-like activity today, you must stop driving immediately. Per [place] law, you must be seizure-free for at least 90 days. Please follow-up with your family doctor or your neurologist prior to then to be cleared for driving. Do not swim alone or go swimming with no duct layer helper, operate heavy machinery, or lock the bathroom door while bathing. Do not undertake activities such as water sports, climbing, or where there is injury if you were to fall. Do not bathe children by yourself Follow-up with your primary care physician for your mildly low thyroid level. I encourage you to follow-up with your primary care physician next week as well as your neurologist at their next availability. If you develop any new or worsening symptoms, or if you become concerned for your health for any reason, return to the emergency department for evaluation Clinical Impressions Clinical Impression: Psychogenic nonepileptic seizure, Low TSH level Stand Alone Forms Stand Alone Forms: Work/School Release Instructions Patient Instructions: DI for Seizure Disorder -- Adult, DI for Seizure (Not Epilepsy/Seizure Disorder), DI for Seizure Disorder -- Child Print Language Print Language: Slovenian Discharge ED Provider: Jaquan Faria Adult HPI General Chief complaint: Seizure Stated complaint: seizure,hit head Time Seen by Provider: 11/16/24 19:42 History of Present Illness HPI narrative: Juliana Ricardo is a 23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 Patient states that she often gets seizures where she will be unable to respond or move her body but will be able to hear through it. She states that normally, she feels the seizures coming, however today she did not have much of a warning. She states that she was started on a new mood stabilizer and took this during dinner. When she got up from dinner, she felt foggy and then had an episode lasting 30 to 35 minutes where she was unable to move and was fully aware of what was happening around her. She states that she was tapping her head on the ground when her family found her. She states that she threw her brother and her mother off of her during the seizure. She states that it resolved prior to arrival. She reports a mild frontal headache at this time, which she states is normal after these episodes. She reports that she has also been taking Keppra for approximately 1 week and is not sure if these medications are contributing to her seizures. Related Data Home Medications ?Medication ?Instructions ?Recorded ?Confirmed phentermine 37.5 mg tablet mg PO DAILY 10/25/24 10/25/24 Previous Rx's ?Medication ?Instructions ?Recorded levetiracetam 500 mg tablet 500 mg PO BID #14 tabs 11/07/24 (Keppra) Allergies Allergy/AdvReac Type Severity Reaction Status Date / Time Penicillins Allergy Rash Verified 10/25/24 16:37 [facility] Disclaimer: The information contained in this section may have been updated after the patient was seen, as this information can be updated by other users. Social History Smoking Status: Current every day smoker alcohol intake: never current occupational status: other Travel in the last 8 weeks?: Inside the [place] Have you lived/traveled outside US in past 30 days?: No Contact w/someone who lives/traveled outside US past 30 days?: No Exposure to someone with infectious disease in past 14 days?: No Do you have a fever (greater than 100.4 F or 38 C)?: No Have you tested positive for COVID-19?: No Exposed to someone with COVID-19 in past 14 days?: No Do you have a sore throat?: No Do you have a cough?: No Do you have any weakness?: No Do you have any diarrhea?: No Are you experiencing any unusual bleeding?: No Do you have any muscle aches/pain?: No Do you have any abdominal pain?: No Are you experiencing loss of taste or smell?: No ROS Obtained: Yes Systems reviewed as appropriate & no additional complaints except as documented Physical Exam General General appearance: alert and in no apparent distress Head Head exam: atraumatic Eye Eye exam: Present normal appearance, PERRL and EOMI ENT ENT exam: Present normal external ear exam Neck Neck exam: Present full ROM Chest Chest inspection: Present symmetric chest wall rise Respiratory Respiratory exam: Present normal lung sounds bilaterally; Absent respiratory distress Cardiovascular Cardiovascular exam: Present regular rate and normal rhythm Abdominal Exam Abdominal exam: Present soft; Absent tenderness or guarding Extremities Exam Extremities exam: Present normal inspection Back Exam Back exam: Present normal inspection Neurological Exam Neurological exam: Present alert, oriented X3 and other (GCS 15, no focal neurological deficits) Psychiatric Psychiatric exam: Present normal affect Skin Skin exam: Present warm and dry Medical Decision Making Medical Records Screening: Per USPSTF and CDC recommendations, given the prevalence of disease in our region, it is our hospital?s policy to screen for HIV and viral Hepatitis for all patients aged 18 and over and those with ongoing risk factors. Colby Inquiry Pt receiving controlled substance: No Vital Signs: 11/16/24 19:50 Temperature 98.1 F Temperature Source Oral Pulse Rate [Right] 113 H Respiratory Rate 20 Blood Pressure [Right Arm] 140/78 Blood Pressure Mean [Right Arm] 98 02 Sat by Pulse Oximetry 100 Oxygen Delivery Method Room Air Lab Data Lab Results 11/16/24 19:55: WBC 8.3, RBC 4.97, Hgb 14.9, Hct 43.4, MCV 87.3, MCH 30.0, MCHC 34.3, RDW 13.5, Plt Count 333, MPV 9.8, Neut % (Auto) 68.3, Lymph % (Auto) 23.0, [place] % (Auto) 6.4, Eos % (Auto) 1.6, Baso % (Auto) 0.5, Neut # (Auto) 5.7, Lymph # (Auto) 1.9, [place] # (Auto) 0.5, Eos # (Auto) 0.1, Baso # (Auto) 0.0, Sodium 139, Potassium 3.6, Chloride 103, Carbon Dioxide 25, Anion Gap 14.6, BUN 11, Creatinine 0.80, Estimated Creat Clear 182, Estimated GFR 91, Est GFR ( Amer) 110, Glucose 85, Calcium 9.7, TSH 0.33 L 11/16/24 19:55 11/16/24 19:55 Orders (Tests/Meds): ORDERS Category Date Time Status BMP [Basic Metabolic Panel] Stat Lab 11/16/24 19:55 Completed CBC w/Auto Diff [Complete Blood Count Auto Diff] Stat Lab 11/16/24 19:55 Completed TSH [Thyroid Stimulating Hormone] Stat Lab 11/16/24 19:55 Completed Medical Decision Narrative: Juliana Ricardo is a 23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 Patient states that she often gets seizures where she will be unable to respond or move her body but will be able to hear through it. She states that normally, she feels the seizures coming, however today she did not have much of a warning. She states that she was started on a new mood stabilizer and took this during dinner. When she got up from dinner, she felt foggy and then had an episode lasting 30 to 35 minutes where she was unable to move and was fully aware of what was happening around her. She states that she was tapping her head on the ground when her family found her. She states that she threw her brother and her mother off of her during the seizure. She states that it resolved prior to arrival. She reports a mild frontal headache at this time, which she states is normal after these episodes. She reports that she has also been taking Keppra for approximately 1 week and is not sure if these medications are contributing to her seizures. On arrival, patient is tachycardic with a heart rate of 115 bpm. Sinus rhythm on monitor. Afebrile, breathing comfortably on room air in no acute respiratory distress with appropriate oxygen saturation. Physical exam, stated above, reveals an overall well-appearing female in no distress. She is GCS 15 with no focal neurological deficits. No evidence of head trauma. She is [place] head CT and Nexus criteria negative. Differential diagnosis includes, but is not limited to: Psychogenic nonepileptic seizure, electrolyte derangement, metabolic derangement, among others. The most morbid conditions were considered and workup was based on these. Patient symptomatology is most consistent with her history of psychogenic nonepileptic seizures, however given she states that this feels slightly different from her previous ones without warning sign and she is mildly tachycardic, will obtain EKG, basic labs including CBC, BMP and TSH Hematologic labs unremarkable. Electrolytes within normal limits. Mildly low TSH but nonactionable. EKG interpreted by me personally and was unremarkable with no ST elevation or depression. Normal sinus rhythm. On reassessment, patient resting comfortably. Is felt that symptomatology is best explained by her psychogenic nonepileptic seizure history. She was encouraged to follow-up with her primary care physician next week and her neurologist as soon as possible. Seizure precautions were given. All questions were answered. She demonstrated understanding and was agreed with this plan. She is requesting a work note at this time and states that she will follow-up with her PCP on Tuesday. She was then discharged from the emergency department in stable condition. Critical Care Critical Care Time Critical Care Time: No
[2024-11-16 20:04] LABS: Hematocrit 43.4 % (37.0-47.0); Hemoglobin 14.9 g/dL (12.2-16.2); Immature Granulocytes % 0.2 %; Mean Corpuscular HGB Conc 34.3 g/dL (31.8-35.4); Mean Corpuscular Hemoglobin 30.0 pg (27.0-31.2); Mean Corpuscular Volume 87.3 fl (81-99); Nucleated Red Blood Cells % 0 %; Platelet Count 333 K/mm3 (142-424); Red Blood Count 4.97 M/mm3 (4.20-5.40); Red Cell Distribution Width-SD 42.7 fL; White Blood Count 8.3 K/mm3 (4.8-10.8)
[2024-11-16 20:13] LABS: Anion Gap 14.6 mEq/L (5-15); Blood Urea Nitrogen 11 mg/dl (7-17); Calcium 9.7 mg/dl (8.4-10.2); Carbon Dioxide 25 mmol/L (22.0-30.0); Chloride 103 mmol/L (98-107); Creatinine Clearance Estimated 182 mL/min (50-200); Creatinine,Serum 0.80 mg/dl (0.52-1.04); Estimated Glomerular Filt Rate 91 ml/min (>60); GFR (African American) 110 ML/MIN (>60); Glucose 85 mg/dl (74-100); Potassium 3.6 mmoL/L (3.5-5.1); Sodium 139 mmol/L (136-145)
--- NOTE | 2024-11-16 20:26 | ECG_ITS ---
APPROVED REPORT Exam: Resting ECG HR:94 bpm ECG Measurements Heart Rate 94 AXES OH 136 P 54 QRSd 96 QRS 78 QT 338 T 44 QTc 390 Conclusion SINUS RHYTHM NORMAL ECG UNCONFIRMED REPORT Normal sinus rhythm. No ST elevation or depression. QTc normal at 390 Electronically signed by : KARLA RILEY, 11/16/2024 21:32:38
[2024-11-16 20:45] LABS: Thyroid Stimulating Hormone 0.33 uIU/mL (0.465-4.68)
[2024-11-16 21:21] VITALS: BP 120/72; PULSE 87; RESP 16; TEMP 36.9; O2SAT 98
== END 2024-11-16 21:21 | disposition home or self-care (01) ==
PROVIDERS: Emergency Provider Student in an Organized Health Care Education/Training Program; PCP Nurse Practitioner
DX: F44.5 Conversion disorder with seizures or convulsions (principal); R00.0 Tachycardia, unspecified; R94.6 Abnormal results of thyroid function studies; F17.210 Nicotine dependence, cigarettes, uncomplicated
CPT/HCPCS: 80048; 84443; 85025; 93005; 99283

== ENCOUNTER 2025-02-01 18:22 | Emergency (ER) | payer OTHER, SELFPAY ==
[2025-02-01 18:28] VITALS: BP 151/99; PULSE 81; RESP 14; TEMP 36.9; O2SAT 99; BMI 37.5
--- NOTE | 2025-02-01 18:28 | ECG_ITS ---
APPROVED REPORT Exam: Resting ECG HR:79 bpm ECG Measurements Heart Rate 79 AXES NC 127 P 57 QRSd 92 QRS 76 QT 351 T 54 QTc 386 Conclusion SINUS RHYTHM NORMAL ECG UNCONFIRMED REPORT Electronically signed by : EBN ALBERTO, 02/01/2025 23:32:08
--- OUTSIDE RECORDS SUMMARY | 2025-02-01 18:31 | XMS_ITS | Clinical Summary ---
Author Organization Healthcare Address [address] [place] [address] Care Team Providers Care Varnishing Unit Tool Setter Name Role Phone Caty Neil APRN Primary Care Provider [phone] Family History Medical History Relation Name Comments [...] 19+ 3-dose series) 2021 [facility]-Pap Smear 12/25/2023 [id number] Vaccine (1 - 20 24-25 season) 2025 [facility]-Influenza Vaccine (#1) 2025 02/09/2022 [facility]-Zoster Vaccines [...] patient's age to complete this topic Insurance MEDICAID Care Teams Varnishing Unit Tool Setter Relationship Specialty Start Date End Date Caty Neil APRN [address] [place] [id number] PCP - General 09/19/20
--- OUTSIDE RECORDS SUMMARY | 2025-02-01 18:31 | XMS_ITS | Encounter Summary ---
Author Organization [facility] Address [address] [place] [address] Care Team Providers Care Cotton Ball Bagger Name Role Phone Caty Neil APRN Primary Care Provider [phone] Encounter Details Date Type Department Care Team (Late st Contact Info) Description 10/13/2023 Community Orders Community Practice [address] [place] [address] Carley Hodges, DO [address] [place] [address] [address] [place] [address] Social History Tobacco Use Types [...] on filedocumented in this encounter Care Teams Cotton Ball Bagger Relationship Specialty Start Date End Date Caty Neil APRN [address] [place] [address] PCP - General 09/19/20 documented as of this encounter
--- OUTSIDE RECORDS SUMMARY | 2025-02-01 18:31 | XMS_ITS | Encounter Summary ---
Author Organization [facility] Address [address] [place] [address] Care Team Providers Care Communications Professor Name Role Phone Caty Neil APRN Primary Care Provider [phone] Reason for Referral * Consultation (Routine) - Authorized Specialty Diagnoses / Procedures Referred By Jennie t Referred To Contact Psychiatry Diagnoses Conversion disorder with seizures or convulsions Sofie Anglin APRN [address] [place] [address] Phone: tel: fax: Referral ID Status Reason Start Date Expiration Date Visits Requested Visits Authorized [id number] Authorized Specialty Services Required 10/13/2023 04/13/2025 1 1 Encounter Details Date Type Department Care Team (Late st Contact Info) Description 10/13/2023 Community [facility] Community Practice [address] [place] [address] Sofei Anglin APRN [address] [place] [address] Conversion disorder with seizures or [...] Primary documented in this encounter Care Teams Communications Professor Relationship Specialty Start Date End Date Caty Neil APRN [address] [place] [address] PCP - General 09/19/20 documented as of this encounter
--- NOTE | 2025-02-01 18:34 | PC.NURSE ---
pt reports that she was taken off her keppra 1mo ago because it caused her to have SI. I discussed this with . wants to go ahead with the dose and the pt agrees.
[2025-02-01] MEDS: levETIRAcetam 2,000 MG in 0.9 % SODIUM CHLORIDE 100 ML 240 MG IV (18:36)
--- NOTE | 2025-02-01 18:46 | CT_ITS ---
PROCEDURE INFORMATION: Exam: CT Head Without Contrast Exam date and time: 02/01/2025 7:15 PM Age: 24 years old Clinical indication: Other: Seizure TECHNIQUE: Imaging protocol: Computed tomography of the head without contrast. Radiation optimization: All CT scans at this facility use at least one of these dose optimization techniques: automated exposure control; mA and/or kV adjustment per patient size (includes targeted exams where dose is matched to clinical indication); or iterative reconstruction. COMPARISON: CT HEAD/BRAIN WO CON 11/07/2024 2:12 PM FINDINGS: Brain: No acute intracranial hemorrhage, midline shift, or mass effect. Cerebral ventricles: No ventriculomegaly. Paranasal sinuses: Minimal right maxillary sinus mucosal thickening. Mastoid air cells: Visualized mastoid air cells are well aerated. Bones: Unremarkable. No acute fracture. Soft tissues: Unremarkable. IMPRESSION: No acute intracranial findings.
--- NOTE | 2025-02-01 18:46 | HMH.EDGENADL ---
Discharge Plan Disposition Patient Disposition: Home, Self-Care Condition: Good Prescriptions Prescriptions: No Action albuterol sulfate [Ventolin HFA] 90 mcg/actuation HFA aerosol inhaler inhalation Patient Comments: INHALE 1 PUFF BY MOUTH EVERY 4 HOURS norgestimate-ethinyl estradiol [Tri-VyLibra Lo] 0.18/0.215/0.25 mg-0.025 mg tablet 1 tab PO Patient Comments: TAKE ONE TABLET BY MOUTH ONCE DAILY phentermine 37.5 mg tablet PO DAILY Patient Comments: TAKE ONE TABLET BY MOUTH EVERY DAY BEFORE breakfast lamotrigine [Lamictal] 25 mg tablet 25 mg PO DAILY 14 Days Qty: 14 0RF Referrals Follow up/Referrals: Provider,Referral, MD [Referring, Medical] - See instructions Activity Restrictions/Add. Instructions Additional Instructions/Restrictions: Start taking the medications that you are prescribed. Come tomorrow for your MRI as scheduled. Follow-up with your neurologist. Return to the emergency department if you have a seizure that lasts longer than 10 minutes, you do not return back to your baseline after 2 hours or if you have any other acute concerns. Clinical Impressions Clinical Impression: Psychogenic nonepileptic seizure Stand Alone Forms Stand Alone Forms: Work/School Release Instructions Patient Instructions: DI for Seizure Disorder -- Adult, DI for Seizure (Not Epilepsy/Seizure Disorder), DI for Seizure Disorder -- Child Print Language Print Language: Palestinian Discharge ED Provider: Madhuri Waters Adult [facility] General Chief complaint: Seizure Stated complaint: Seizure Time Seen by Provider: 02/01/25 18:46 Mode of Arrival: Family Vehicle Source of Information: Patient and Parent(s) Description of Symptoms (Recalled from ER Triage Doc. by RN): pt had a seizure in the [employer] [place]. per mother it lasted about 10 minutes. started a new seizure medication today but has not taken the first dose yet. postictla Related Data Home Medications ?Medication ?Instructions ?Recorded ?Confirmed phentermine 37.5 mg tablet mg PO DAILY 10/25/24 02/01/25 albuterol sulfate 90 mcg/actuation inhalation 01/29/25 02/01/25 aerosol inhaler (Ventolin HFA) norgestimate 0.18 mg/0.215mg/0.25 1 tab PO 01/29/25 02/01/25 mg-ethinyl estradiol 0.025 mg tablet (Tri-VyLibra Lo) Previous Rx's ?Medication ?Instructions ?Recorded lamotrigine 25 mg tablet (Lamictal) 25 mg PO DAILY 14 days #14 tabs 02/01/25 Allergies Allergy/AdvReac Type Severity Reaction Status Date / Time metoprolol Allergy Unknown Unknown Verified 02/01/25 07:47 allergy reaction Penicillins Allergy Rash Verified 02/01/25 07:47 [facility] Disclaimer: The information contained in this section may have been updated after the patient was seen, as this information can be updated by other users. Surgical History History of liver biopsy Family History Other Alcoholism Anemia Asthma Cancer Diabetes FHx: mental illness Heart attack Hyperlipidemia Hypertension Kidney disease Stroke Substance abuse Social History Smoking Status: Current every day smoker alcohol intake: current alcohol intake frequency: holidays/special occasions only current occupational status: employed Travel in the last 8 weeks?: Inside the [place] Have you lived/traveled outside US in past 30 days?: No Contact w/someone who lives/traveled outside US past 30 days?: No Exposure to someone with infectious disease in past 14 days?: No Do you have a fever (greater than 100.4 F or 38 C)?: No Have you tested positive for COVID-19?: No Exposed to someone with COVID-19 in past 14 days?: No Do you have a sore throat?: No Do you have a cough?: No Do you have any weakness?: No Do you have any diarrhea?: No Are you experiencing any unusual bleeding?: No Do you have any muscle aches/pain?: No Do you have any abdominal pain?: No Are you experiencing loss of taste or smell?: No Other Medical History Have you received the Pneumonia Vaccine: No Physical Exam General General appearance: alert and in no apparent distress Head Head exam: atraumatic, normocephalic and normal inspection Eye Eye exam: Present normal appearance, PERRL and EOMI; Absent scleral icterus ENT ENT exam: Present normal exam and normal external ear exam Neck Neck exam: Present normal inspection and full ROM Chest Chest inspection: Present normal inspection and symmetric chest wall rise Respiratory Respiratory exam: Present normal lung sounds bilaterally; Absent respiratory distress or wheezes Cardiovascular Cardiovascular exam: Present regular rate, normal rhythm and normal heart sounds Abdominal Exam Abdominal exam: Present soft and distention; Absent tenderness, guarding or rebound Extremities Exam Extremities exam: Present normal inspection and full ROM Back Exam Back exam: Present normal inspection and full ROM Neurological Exam Neurological exam: Present alert and oriented X3 Psychiatric Psychiatric exam: Present normal affect and normal mood Skin Skin exam: Present warm and dry Medical Decision Making Medical Records Screening: Per USPSTF and CDC recommendations, given the prevalence of disease in our region, it is our hospital?s policy to screen for HIV and viral Hepatitis for all patients aged 18 and over and those with ongoing risk factors. Vital Signs: 02/01/25 18:28 02/01/25 19:01 02/01/25 19:30 Temperature 98.4 F Temperature Source Oral Pulse Rate Pulse Rate [Right] 81 Respiratory Rate 14 Blood Pressure 121/72 115/76 Blood Pressure [Right Arm] 151/99 H Blood Pressure Mean 98 89 Blood Pressure Mean [Right Arm] 116 Blood Pressure Source Blood Pressure Position 02 Sat by Pulse Oximetry 99 Oxygen Delivery Method 02/01/25 20:00 02/01/25 20:30 02/01/25 21:29 Temperature 98.1 F Temperature Source Temporal Artery Scan Pulse Rate 61 Pulse Rate [Right] Respiratory Rate 18 Blood Pressure 121/76 106/62 L 112/57 L Blood Pressure [Right Arm] Blood Pressure Mean 86 76 Blood Pressure Mean [Right Arm] Blood Pressure Source Automatic Cuff Blood Pressure Position Sitting 02 Sat by Pulse Oximetry Oxygen Delivery Method Room Air Lab Data Lab Results 02/01/25 18:30: WBC 7.5, RBC 4.95, Hgb 14.7, Hct 43.1, MCV 87.1, MCH 29.7, MCHC 34.1, RDW 12.8, Plt Count 370, MPV 9.8, Neut % (Auto) 43.0, Lymph % (Auto) 46.9, [place] % (Auto) 7.3, Eos % (Auto) 2.0, Baso % (Auto) 0.7, Neut # (Auto) 3.2, Lymph # (Auto) 3.5, [place] # (Auto) 0.6, Eos # (Auto) 0.2, Baso # (Auto) 0.1, Sodium 141, Potassium 3.6, Chloride 107, Carbon Dioxide 26, Anion Gap 11.6, BUN 13, Creatinine 0.90, Estimated Creat Clear 159, Estimated GFR 78, Est GFR ( Amer) 95, Glucose 77, Calcium 9.1, Magnesium 2.0, Total Bilirubin 0.3, AST 31, ALT 37, Alkaline Phosphatase 47, Total Protein 7.4, Albumin 4.4, Globulin 3.0, Albumin/Globulin Ratio 1.5, TSH 2.91, Free T4 1.16, Serum HCG, Qual Negative, Plasma/Serum Alcohol < 10, HCV Ab JANESSA w/Rflx PCR Qn Negative, HIV Ag/Ab Combo Qual Negative 02/01/25 18:30 02/01/25 18:30 Orders (Tests/Meds): ED MEDICATIONS Discontinued Medications Generic Name Dose Route Start Last Admin Trade Name Freq PRN Reason Stop Dose Admin Acetaminophen 1,000 mg 02/01/25 19:48 02/01/25 20:16 Acetaminophen 500mg Tab PO 02/01/25 19:49 1,000 mg ONCE ONE Administration Levetiracetam 2,000 mg/ Sodium 120 mls @ 240 mls/hr 02/01/25 18:32 02/01/25 18:36 Chloride IV 02/01/25 18:33 240 mls/hr ONCE ONE Administration Ketorolac Tromethamine 30 mg 02/01/25 19:48 02/01/25 20:16 Ketorolac 30mg/Ml Vial IV 02/01/25 19:49 30 mg ONCE ONE Administration Lamotrigine 25 mg 02/01/25 19:41 02/01/25 20:14 Lamotrigine 100mg Tablet PO 02/01/25 19:42 25 mg ONCE ONE Administration ORDERS Category Date Time Status CT head/brain wo con Stat Cat Scan 02/01/25 18:46 Completed CBC w/Auto Diff [Complete Blood Count Auto Diff] Stat Lab 02/01/25 18:30 Completed CMP [Comprehensive Metabolic Panel] Stat Lab 02/01/25 18:30 Completed Ethyl Alcohol Stat Lab 02/01/25 18:30 Completed Free T4 (Free Thyroxine) Stat Lab 02/01/25 18:30 Completed HCG Qualitative, Serum Stat Lab 02/01/25 18:30 Completed HIV Combo Stat Lab 02/01/25 18:30 Completed Hepatitis C Ab Qual. W/ RFX Stat Lab 02/01/25 18:30 Completed MAG [Magnesium] Stat Lab 02/01/25 18:30 Completed TSH [Thyroid Stimulating Hormone] Stat Lab 02/01/25 18:30 Completed
[2025-02-01 18:58] LABS: Alanine Aminotransferase 37 U/L (12-78); Albumin Level 4.4 g/dl (3.5-5.0); Albumin/Globulin Ratio 1.5 (1.1-1.8); Alkaline Phosphatase 47 U/L (38-126); Anion Gap 11.6 mEq/L (5-15); Aspartate Amino Transferase 31 U/L (14-36); Bilirubin,Total 0.3 mg/dl (0.2-1.3); Blood Urea Nitrogen 13 mg/dl (7-17); Calcium 9.1 mg/dl (8.4-10.2); Carbon Dioxide 26 mmol/L (22.0-30.0); Chloride 107 mmol/L (98-107); Creatinine Clearance Estimated 159 mL/min (50-200); Creatinine,Serum 0.90 mg/dl (0.52-1.04); Estimated Glomerular Filt Rate 78 ml/min (>60); GFR (African American) 95 ML/MIN (>60); Globulin 3.0 g/dL (1.3-3.2); Glucose 77 mg/dl (74-100); Magnesium 2.0 mg/dl (1.6-2.3); Potassium 3.6 mmoL/L (3.5-5.1); Sodium 141 mmol/L (136-145); Total Protein,Serum 7.4 g/dl (6.3-8.2)
[2025-02-01 19:00] LABS: HCG Qualitative, Serum Negative (Negative)
[2025-02-01 19:01] VITALS: BP 121/72
[2025-02-01 19:01] LABS: Hematocrit 43.1 % (37.0-47.0); Hemoglobin 14.7 g/dL (12.2-16.2); Immature Granulocytes % 0.1 %; Mean Corpuscular HGB Conc 34.1 g/dL (31.8-35.4); Mean Corpuscular Hemoglobin 29.7 pg (27.0-31.2); Mean Corpuscular Volume 87.1 fl (81-99); Nucleated Red Blood Cells % 0 %; Platelet Count 370 K/mm3 (142-424); Red Blood Count 4.95 M/mm3 (4.20-5.40); Red Cell Distribution Width-SD 40.7 fL; White Blood Count 7.5 K/mm3 (4.8-10.8)
[2025-02-01 19:14] LABS: Free T4 (Free Thyroxine) 1.16 ng/dl (0.78-2.19)
--- NOTE | 2025-02-01 19:22 | ED_ITS ---
<Statement entered by Madhuri Waters DO - 02/03/25 16:11> I was consulted by the AGATA, and we discussed the complexity of problems being addressed. I approve the treatment and management plan for this patient's care in the emergency department, thus performing a substantial portion of the medical decision making. Madhuri Waters DO Discharge Plan Disposition Patient Disposition: Home, Self-Care Condition: Good Prescriptions Prescriptions: No Action albuterol sulfate [Ventolin HFA] 90 mcg/actuation HFA aerosol inhaler inhalation Patient Comments: INHALE 1 PUFF BY MOUTH EVERY 4 HOURS norgestimate-ethinyl estradiol [Tri-VyLibra Lo] 0.18/0.215/0.25 mg-0.025 mg tablet 1 tab PO Patient Comments: TAKE ONE TABLET BY MOUTH ONCE DAILY phentermine 37.5 mg tablet PO DAILY Patient Comments: TAKE ONE TABLET BY MOUTH EVERY DAY BEFORE breakfast lamotrigine [Lamictal] 25 mg tablet 25 mg PO DAILY 14 Days Qty: 14 0RF Referrals Follow up/Referrals: Provider,Referral, MD [Referring, Medical] - See instructions Activity Restrictions/Add. Instructions Additional Instructions/Restrictions: Start taking the medications that you are prescribed. Come tomorrow for your MRI as scheduled. Follow-up with your neurologist. Return to the emergency department if you have a seizure that lasts longer than 10 minutes, you do not return back to your baseline after 2 hours or if you have any other acute concerns. Clinical Impressions Clinical Impression: Psychogenic nonepileptic seizure Stand Alone Forms Stand Alone Forms: Work/School Release Instructions Patient Instructions: DI for Seizure Disorder -- Adult, DI for Seizure (Not Epilepsy/Seizure Disorder), DI for Seizure Disorder -- Child Print Language Print Language: Occitan Discharge ED Provider: Madhuri Waters General Adult HPI <Isabel Torres APRN - Last Filed: 02/01/25 21:16> General Chief complaint: Seizure Stated complaint: Seizure Time Seen by Provider: 02/01/25 18:46 Mode of Arrival: Family Vehicle Source of Information: Patient and Parent(s) Description of Symptoms (Recalled from ER Triage Doc. by RN): pt had a seizure in the [facility] parking lot. per mother it lasted about 10 minutes. started a new seizure medication today but has not taken the first dose yet. postictla History of Present Illness HPI narrative: patient is a 24-year-old female PMHx seizure disorder, bipolar, psychogenic nonepileptic seizures who presents to the ED for seizure. Patient was at the hospital picking up her lamotrigine which was recently prescribed, she had not started it yet, when she had a seizure in the back of the vehicle witnessed by her mother. Mother states that the seizure lasted approximately 10 minutes. Patient was not injured in the process. Upon initial evaluation patient is drowsy, answering questions appropriately. Related Data Home Medications ?Medication ?Instructions ?Recorded ?Confirmed phentermine 37.5 mg tablet mg PO DAILY 10/25/24 albuterol sulfate 90 mcg/actuation inhalation 01/29/25 02/01/25 aerosol inhaler (Ventolin HFA) norgestimate 0.18 mg/0.215mg/0.25 1 tab PO 01/29/25 mg-ethinyl estradiol 0.025 mg tablet (Tri-VyLibra Lo) Previous Rx's ?Medication ?Instructions ?Recorded lamotrigine 25 mg tablet (Lamictal) 25 mg PO DAILY 14 days #14 tabs 02/01/25 Allergies Allergy/AdvReac Type Severity Reaction Status Date / Time metoprolol Allergy Unknown Unknown Verified 02/01/25 07:47 allergy reaction Penicillins Allergy Rash Verified 02/01/25 07:47 <Madhuri Waters, - Last Filed: 02/03/25 16:11> History of Present Illness HPI narrative: patient is a 24-year-old female PMHx seizure disorder, bipolar, psychogenic nonepileptic seizures who presents to the ED for seizure. Patient was at the hospital picking up her lamotrigine which was recently prescribed, she had not started it yet, when she had a seizure in the back of the vehicle witnessed by her mother. Mother states that the seizure lasted approximately 10 minutes. Patient was not injured in the process. Upon initial evaluation patient is drowsy, answering questions appropriately. After further history review: Patient states that she was recently diagnosed with nonepileptic seizures. Was admitted to [facility] had had a prolonged EEG that showed no epileptic like seizures. States that she was previously on Keppra but this was causing her to be suicidal and therefore it was discontinued. Patient states that she was recently started on lamotrigine which she was going to start today and was on the way to [employer] [place]. Patient states that her seizures are likely stress-induced. Patient states that she had a seizure on December 09, had a seizure yesterday around 7 PM and then again today. States that she also follows with neurology here in [place] and has an MRI scheduled for tomorrow. Patient denies any new medication changes. Patient denies any recent infectious symptoms. [facility] <Isabel Torres APRN - Last Filed: 02/01/25 21:16> [facility] Disclaimer: The information contained in this section may have been updated after the patient was seen, as this information can be updated by other users. Surgical History History of liver biopsy Family History Other Alcoholism Anemia Asthma Cancer Diabetes FHx: mental illness Heart attack Hyperlipidemia Hypertension Kidney disease Stroke Substance abuse Social History Smoking Status: Current every day smoker alcohol intake: current alcohol intake frequency: holidays/special occasions only current occupational status: employed Travel in the last 8 weeks?: Inside the [place] Have you lived/traveled outside US in past 30 days?: No Contact w/someone who lives/traveled outside US past 30 days?: No Exposure to someone with infectious disease in past 14 days?: No Do you have a fever (greater than 100.4 F or 38 C)?: No Have you tested positive for COVID-19?: No Exposed to someone with COVID-19 in past 14 days?: No Do you have a sore throat?: No Do you have a cough?: No Do you have any weakness?: No Do you have any diarrhea?: No Are you experiencing any unusual bleeding?: No Do you have any muscle aches/pain?: No Do you have any abdominal pain?: No Are you experiencing loss of taste or smell?: No Other Medical History Have you received the Pneumonia Vaccine: No <Isabel Torres APRN - Last Filed: 02/01/25 21:16> ROS Obtained: Yes Systems reviewed as appropriate & no additional complaints except as documented <Madhuri Waters DO - Last Filed: 02/03/25 16:11> ROS Obtained: Yes All systems reviewed & no additional complaints except as documented and Yes Systems reviewed as appropriate & no additional complaints except as documented Physical Exam <Isabel Trores APRN - Last Filed: 02/01/25 21:16> General General appearance: alert and in no apparent distress Head Head exam: normocephalic and other (dried blood around mouth, small abrasion on tongue ) Eye Eye exam: Present PERRL Neck Neck exam: Present full ROM Chest Chest inspection: Present normal inspection Respiratory Respiratory exam: Present normal lung sounds bilaterally Cardiovascular Cardiovascular exam: Present regular rate Abdominal Exam Abdominal exam: Present soft Neurological Exam Neurological exam: Present alert Skin Skin exam: Present warm and dry Medical Decision Making <Isabel Torres APRN - Last Filed: 02/01/25 21:16> Medical Records Screening: Per USPSTF and CDC recommendations, given the prevalence of disease in our region, it is our hospital?s policy to screen for HIV and viral Hepatitis for all patients aged 18 and over and those with ongoing risk factors. [place] Inquiry Pt receiving controlled substance: No Vital Signs: 02/01/25 18:28 02/01/25 19:01 02/01/25 19:30 Temperature 98.4 F Temperature Source Oral Pulse Rate Pulse Rate [Right] 81 Respiratory Rate 14 Blood Pressure 121/72 115/76 Blood Pressure [Right Arm] 151/99 H Blood Pressure Mean 98 89 Blood Pressure Mean [Right Arm] 116 Blood Pressure Source Blood Pressure Position 02 Sat by Pulse Oximetry 99 Oxygen Delivery Method 02/01/25 20:00 02/01/25 20:30 02/01/25 21:29 Temperature 98.1 F Temperature Source Temporal Artery Scan Pulse Rate 61 Pulse Rate [Right] Respiratory Rate 18 Blood Pressure 121/76 106/62 L 112/57 L Blood Pressure [Right Arm] Blood Pressure Mean 86 76 Blood Pressure Mean [Right Arm] Blood Pressure Source Automatic Cuff Blood Pressure Position Sitting 02 Sat by Pulse Oximetry Oxygen Delivery Method Room Air Lab Data Lab Results 02/01/25 18:30: WBC 7.5, RBC 4.95, Hgb 14.7, Hct 43.1, MCV 87.1, MCH 29.7, MCHC 34.1, RDW 12.8, Plt Count 370, MPV 9.8, Neut % (Auto) 43.0, Lymph % (Auto) 46.9, [place] % (Auto) 7.3, Eos % (Auto) 2.0, Baso % (Auto) 0.7, Neut # (Auto) 3.2, Lymph # (Auto) 3.5, [place] # (Auto) 0.6, Eos # (Auto) 0.2, Baso # (Auto) 0.1, Sodium 141, Potassium 3.6, Chloride 107, Carbon Dioxide 26, Anion Gap 11.6, BUN 13, Creatinine 0.90, Estimated Creat Clear 159, Estimated GFR 78, Est GFR ( Amer) 95, Glucose 77, Calcium 9.1, Magnesium 2.0, Total Bilirubin 0.3, AST 31, ALT 37, Alkaline Phosphatase 47, Total Protein 7.4, Albumin 4.4, Globulin 3.0, Albumin/Globulin Ratio 1.5, TSH 2.91, Free T4 1.16, Serum HCG, Qual Negative, Plasma/Serum Alcohol < 10, HCV Ab JANESSA w/Rflx PCR Qn Negative, HIV Ag/Ab Combo Qual Negative 02/01/25 18:30 02/01/25 18:30 Orders (Tests/Meds): ED MEDICATIONS Discontinued Medications Generic Name Dose Route Start Last Admin Trade Name Freq PRN Reason Stop Dose Admin Acetaminophen 1,000 mg 02/01/25 19:48 02/01/25 20:16 Acetaminophen 500mg Tab PO 02/01/25 19:49 1,000 mg ONCE ONE Administration Levetiracetam 2,000 mg/ Sodium 120 mls @ 240 mls/hr 02/01/25 18:32 02/01/25 18:36 Chloride IV 02/01/25 18:33 240 mls/hr ONCE ONE Administration Ketorolac Tromethamine 30 mg 02/01/25 19:48 02/01/25 20:16 Ketorolac 30mg/Ml Vial IV 02/01/25 19:49 30 mg ONCE ONE Administration Lamotrigine 25 mg 02/01/25 19:41 02/01/25 20:14 Lamotrigine 100mg Tablet PO 02/01/25 19:42 25 mg ONCE ONE Administration ORDERS Category Date Time Status CT head/brain wo con Stat Cat Scan 02/01/25 18:46 Completed CBC w/Auto Diff [Complete Blood Count Auto Diff] Stat Lab 02/01/25 18:30 Completed CMP [Comprehensive Metabolic Panel] Stat Lab 02/01/25 18:30 Completed Ethyl Alcohol Stat Lab 02/01/25 18:30 Completed Free T4 (Free Thyroxine) Stat Lab 02/01/25 18:30 Completed HCG Qualitative, Serum Stat Lab 02/01/25 18:30 Completed HIV Combo Stat Lab 02/01/25 18:30 Completed Hepatitis C Ab Qual. W/ RFX Stat Lab 02/01/25 18:30 Completed MAG [Magnesium] Stat Lab 02/01/25 18:30 Completed TSH [Thyroid Stimulating Hormone] Stat Lab 02/01/25 18:30 Completed Medical Decision Narrative: In summary, patient is a 24-year-old female PMHx seizure disorder, bipolar, psychogenic nonepileptic seizures who presents to the ED for seizure. Patient was at the hospital picking up her lamotrigine which was recently prescribed, she had not started it yet, when she had a seizure in the back of the vehicle witnessed by her mother. Mother states that the seizure lasted approximately 10 minutes. Patient was not injured in the process. Upon initial evaluation patient is drowsy, answering questions appropriately. Seizure padding placed she is hemodynamically stable. She has dried blood around her mouth, small abrasion on her tongue. Differential diagnosis include infectious process, seizure, bleed, aneurysm, among others. Keppra 2 g IV given. CBC unremarkable for any leukocytosis, stable H&H. CMP unremarkable for any infectious process. hCG negative. Alcohol negative. Head CT unremarkable for any acute process. Home dose of lamotrigine given. Urinalysis unremarkable for any infectious process. hCG negative. Serum alcohol < 10. Patient is alert, oriented. She has been evaluated by the attending. After discussion with patient and family, she has a MRI scheduled for tomorrow and follow-up with neurology scheduled already. Patient is comfortable being discharged home in the care of her mother at this time. We discussed to keep follow-up, we discussed return precautions to the ED. Patient is hemodynamically stable and ambulatory without difficulty. Pt discharged by attending, Dr. Waters. <Madhuri Waters DO - Last Filed: 02/03/25 16:11> Medical Records Medical records reviewed: Yes I reviewed the patient's medical records. Vital Signs: 02/01/25 18:28 02/01/25 19:01 02/01/25 19:30 Temperature 98.4 F Temperature Source Oral Pulse Rate Pulse Rate [Right] 81 Respiratory Rate 14 Blood Pressure 121/72 115/76 Blood Pressure [Right Arm] 151/99 H Blood Pressure Mean 98 89 Blood Pressure Mean [Right Arm] 116 Blood Pressure Source Blood Pressure Position 02 Sat by Pulse Oximetry 99 Oxygen Delivery Method 02/01/25 20:00 02/01/25 20:30 02/01/25 21:29 Temperature 98.1 F Temperature Source Temporal Artery Scan Pulse Rate 61 Pulse Rate [Right] Respiratory Rate 18 Blood Pressure 121/76 106/62 L 112/57 L Blood Pressure [Right Arm] Blood Pressure Mean 86 76 Blood Pressure Mean [Right Arm] Blood Pressure Source Automatic Cuff Blood Pressure Position Sitting 02 Sat by Pulse Oximetry Oxygen Delivery Method Room Air Lab Data Lab results reviewed: Yes I reviewed the patient's lab results. Lab Results 02/01/25 18:30: WBC 7.5, RBC 4.95, Hgb 14.7, Hct 43.1, MCV 87.1, MCH 29.7, MCHC 34.1, RDW 12.8, Plt Count 370, MPV 9.8, Neut % (Auto) 43.0, Lymph % (Auto) 46.9, [place] % (Auto) 7.3, Eos % (Auto) 2.0, Baso % (Auto) 0.7, Neut # (Auto) 3.2, Lymph # (Auto) 3.5, [place] # (Auto) 0.6, Eos # (Auto) 0.2, Baso # (Auto) 0.1, Sodium 141, Potassium 3.6, Chloride 107, Carbon Dioxide 26, Anion Gap 11.6, BUN 13, Creatinine 0.90, Estimated Creat Clear 159, Estimated GFR 78, Est GFR ( Amer) 95, Glucose 77, Calcium 9.1, Magnesium 2.0, Total Bilirubin 0.3, AST 31, ALT 37, Alkaline Phosphatase 47, Total Protein 7.4, Albumin 4.4, Globulin 3.0, Albumin/Globulin Ratio 1.5, TSH 2.91, Free T4 1.16, Serum HCG, Qual Negative, Plasma/Serum Alcohol < 10, HCV Ab JANESSA w/Rflx PCR Qn Negative, HIV Ag/Ab Combo Qual Negative Orders (Tests/Meds): ED MEDICATIONS Discontinued Medications Generic Name Dose Route Start Last Admin Trade Name Freq PRN Reason Stop Dose Admin Acetaminophen 1,000 mg 02/01/25 19:48 02/01/25 20:16 Acetaminophen 500mg Tab PO 02/01/25 19:49 1,000 mg ONCE ONE Administration Levetiracetam 2,000 mg/ Sodium 120 mls @ 240 mls/hr 02/01/25 18:32 02/01/25 18:36 Chloride IV 02/01/25 18:33 240 mls/hr ONCE ONE Administration Ketorolac Tromethamine 30 mg 02/01/25 19:48 02/01/25 20:16 Ketorolac 30mg/Ml Vial IV 02/01/25 19:49 30 mg ONCE ONE Administration Lamotrigine 25 mg 02/01/25 19:41 02/01/25 20:14 Lamotrigine 100mg Tablet PO 02/01/25 19:42 25 mg ONCE ONE Administration ORDERS Category Date Time Status CT head/brain wo con Stat Cat Scan 02/01/25 18:46 Completed CBC w/Auto Diff [Complete Blood Count Auto Diff] Stat Lab 02/01/25 18:30 Completed CMP [Comprehensive Metabolic Panel] Stat Lab 02/01/25 18:30 Completed Ethyl Alcohol Stat Lab 02/01/25 18:30 Completed Free T4 (Free Thyroxine) Stat Lab 02/01/25 18:30 Completed HCG Qualitative, Serum Stat Lab 02/01/25 18:30 Completed HIV Combo Stat Lab 02/01/25 18:30 Completed Hepatitis C Ab Qual. W/ RFX Stat Lab 02/01/25 18:30 Completed MAG [Magnesium] Stat Lab 02/01/25 18:30 Completed TSH [Thyroid Stimulating Hormone] Stat Lab 02/01/25 18:30 Completed Medical Decision Narrative: In summary, patient is a 24-year-old female PMHx seizure disorder, bipolar, psychogenic nonepileptic seizures who presents to the ED for seizure. Patient was at the hospital picking up her lamotrigine which was recently prescribed, she had not started it yet, when she had a seizure in the back of the vehicle witnessed by her mother. Mother states that the seizure lasted approximately 10 minutes. Patient was not injured in the process. Upon initial evaluation patient is drowsy, answering questions appropriately. Seizure padding placed she is hemodynamically stable. She has dried blood around her mouth, small abrasion on her tongue. Differential diagnosis include infectious process, seizure, bleed, aneurysm, among others. Keppra 2 g IV given. CBC unremarkable for any leukocytosis, stable H&H. CMP unremarkable for any infectious process. hCG negative. Alcohol negative. Head CT unremarkable for any acute process. Home dose of lamotrigine given and patient was given 2 g of Keppra on arrival. Urinalysis unremarkable for any infectious process. hCG negative. Serum alcohol < 10. Patient is alert, oriented. She has been evaluated by the attending. After discussion with patient and family, she has a MRI scheduled for tomorrow and follow-up with neurology scheduled already. Patient has already been seen and evaluated by [facility] neurology and was diagnosed with nonepileptic seizures as well per neurology's note. Given that patient is currently back to her baseline and seizures are nonepileptic in nature I feel that patient is okay for discharge home given the patient has not had multiple episodes in the last 24 hours. Patient is comfortable being discharged home in the care of her mother at this time. We discussed to keep follow-up, we discussed return precautions to the ED. Patient is hemodynamically stable and ambulatory without difficulty. Pt discharged by attending, Dr. Waters. Critical Care <Isabel Torres APRN - Last Filed: 02/01/25 21:16> Critical Care Time Critical Care Time: No
[2025-02-01 19:29] LABS: Thyroid Stimulating Hormone 2.91 uIU/mL (0.465-4.68)
[2025-02-01 19:30] VITALS: BP 115/76
[2025-02-01 19:52] LABS: Hepatitis C Ab Qual. W/ RFX NEGATIVE (Negative)
[2025-02-01 20:00] VITALS: BP 121/76
[2025-02-01] MEDS: KETOROLAC 30MG/ML VIAL 30 MG IV (20:16)
[2025-02-01] MEDS: ACETAMINOPHEN 500MG TAB 1000 MG PO (20:16)
[2025-02-01 20:30] VITALS: BP 106/62
[2025-02-01 21:29] VITALS: BP 112/57; PULSE 61; RESP 18; TEMP 36.7; O2SAT 100
== END 2025-02-01 21:43 | disposition home or self-care (01) ==
PROVIDERS: Emergency Provider Student in an Organized Health Care Education/Training Program; PCP Nurse Practitioner
DX: F44.5 Conversion disorder with seizures or convulsions (principal); F17.210 Nicotine dependence, cigarettes, uncomplicated
CPT/HCPCS: 70450; 80053; 80320; 83735; 84439; 84443; 84703; 85025; 86803; 87389; 93005; 96374; 96375; 99284; J1885; J1953

== ENCOUNTER 2025-02-03 21:48 | Emergency (ER) | payer OTHER, SELFPAY ==
[2025-02-03 21:50] VITALS: PULSE 79; O2SAT 100
--- OUTSIDE RECORDS SUMMARY | 2025-02-03 21:54 | XMS_ITS | Encounter Summary ---
Author Organization [facility] Address [address] [place] [address] Care Team Providers Care Compensation And Hris Analyst Name Role Phone Caty Neil APRN Primary Care Provider [phone] Reason for Referral * Consultation (Routine) - Authorized Specialty Diagnoses / Procedures Referred By Jennie t Referred To Contact Psychiatry Diagnoses Conversion disorder with seizures or convulsions Sofie Anglin APRN [address] [place] [address] Phone: tel: fax: Referral ID Status Reason Start Date Expiration Date Visits Requested Visits Authorized [id number] Authorized Specialty Services Required 10/13/2023 04/13/2025 1 1 Encounter Details Date Type Department Care Team (Late st Contact Info) Description 10/13/2023 Community [facility] [address] [place] [address] Sofie Anglin APRN [address] [place] [address] Conversion disorder with seizures or [...] Primary documented in this encounter Care Teams Compensation And Hris Analyst Relationship Specialty Start Date End Date Caty Neil APRN [address] [place] [address] PCP - General 09/19/20 documented as of this encounter
--- OUTSIDE RECORDS SUMMARY | 2025-02-03 21:54 | XMS_ITS | Encounter Summary ---
Author Organization [facility] Address [address] [place] [address] Care Team Providers Care Social Media Developer Name Role Phone Caty Neil APRN Primary Care Provider [phone] Encounter Details Date Type Department Care Team (Late st Contact Info) Description 10/13/2023 Community [facility] [address] [place] [address] Carley Hodges, DO [address] [place] [address] [address] [place] [address] Social History Tobacco Use Types [...] on filedocumented in this encounter Care Teams Social Media Developer Relationship Specialty Start Date End Date Caty Neil APRN [address] [place] [address] PCP - General 09/19/20 documented as of this encounter
--- OUTSIDE RECORDS SUMMARY | 2025-02-03 21:54 | XMS_ITS | Clinical Summary ---
Author Organization Healthcare Address [address] [place] [address] Care Team Providers Care Certified Legal Secretary Specialist Name Role Phone Caty Neil APRN Primary Care Provider [phone] Family History Medical History Relation Name Comments [...] 19+ 3-dose series) 2021 [facility]-Pap Smear 12/25/2023 [id number] Vaccine (1 - 20 24-25 season) 2025 [...] complete this topic Insurance MEDICAID Care Teams Certified Legal Secretary Specialist Relationship Specialty Start Date End Date Caty Neil APRN [address] [place] [id number] PCP - General 09/19/20
[2025-02-03 21:56] VITALS: BP 133/72; PULSE 82; RESP 14; TEMP 37.1; O2SAT 100; BMI 38.7
[2025-02-03 22:00] VITALS: BP 128/73; PULSE 83; O2SAT 100
--- NOTE | 2025-02-03 22:00 | HMH.EDGENADL ---
Discharge Plan Disposition Patient Disposition: Home, Self-Care Condition: Good Prescriptions Prescriptions: No Action albuterol sulfate [Ventolin HFA] 90 mcg/actuation HFA aerosol inhaler inhalation Patient Comments: INHALE 1 PUFF BY MOUTH EVERY 4 HOURS norgestimate-ethinyl estradiol [Tri-VyLibra Lo] 0.18/0.215/0.25 mg-0.025 mg tablet 1 tab PO Patient Comments: TAKE ONE TABLET BY MOUTH ONCE DAILY phentermine 37.5 mg tablet PO DAILY Patient Comments: TAKE ONE TABLET BY MOUTH EVERY DAY BEFORE breakfast lamotrigine [Lamictal] 25 mg tablet 25 mg PO DAILY 14 Days Qty: 14 0RF Referrals Follow up/Referrals: Provider,Referral, MD [Primary Care Provider, Medical] - See instructions Activity Restrictions/Add. Instructions Additional Instructions/Restrictions: Follow-up with neurology as scheduled call them tomorrow to schedule an earlier appointment. Continue to keep your MRI appointment that you have on Tuesday. Continue taking your medications as prescribed. Clinical Impressions Clinical Impression: Seizure-like activity Instructions Patient Instructions: DI for Seizure Disorder in Adults, DI for Seizure (Not Epilepsy/Seizure Disorder), DI for Seizure Disorder in Child Print Language Print Language: Bengali Discharge ED Provider: Madhuri Waters General Adult HPI General Chief complaint: Seizure Stated complaint: seizures Time Seen by Provider: 02/03/25 21:53 History of Present Illness HPI narrative: Patient is a otherwise healthy 24-year-old female with a past medical history of nonepileptic seizures who presented to the emergency department with a seizure-like episode. Patient states this occurred at home was witnessed by mother. Patient states that she had some black spots in her vision before that occurred. Patient states that she was confused for about 6 to 8 minutes afterwards. Patient is currently back to her baseline. Patient denies any other new medication changes except for starting lamotrigine. Patient has only had 2 days worth. Patient states that she has an MRI scheduled on Tuesday. Patient follows with [facility]. Patient denies any other recent symptoms including fevers cough chills headache vision changes. Patient denies any abdominal pain nausea vomiting or diarrhea. Patient denies any chest pain or shortness of breath. Related Data Home Medications ?Medication ?Instructions ?Recorded ?Confirmed phentermine 37.5 mg tablet mg PO DAILY 10/25/24 02/01/25 albuterol sulfate 90 mcg/actuation inhalation 01/29/25 02/01/25 aerosol inhaler (Ventolin HFA) norgestimate 0.18 mg/0.215mg/0.25 1 tab PO 01/29/25 02/01/25 mg-ethinyl estradiol 0.025 mg tablet (Tri-VyLibra Lo) Previous Rx's ?Medication ?Instructions ?Recorded lamotrigine 25 mg tablet (Lamictal) 25 mg PO DAILY 14 days #14 tabs 02/01/25 Allergies Allergy/AdvReac Type Severity Reaction Status Date / Time metoprolol Allergy Unknown Unknown Verified 02/03/25 22:01 allergy reaction Penicillins Allergy Rash Verified 02/03/25 22:01 [facility] Disclaimer: The information contained in this section may have been updated after the patient was seen, as this information can be updated by other users. Surgical History History of liver biopsy Family History Other Alcoholism Anemia Asthma Cancer Diabetes FHx: mental illness Heart attack Hyperlipidemia Hypertension Kidney disease Stroke Substance abuse Social History Smoking Status: Current every day smoker alcohol intake: current alcohol intake frequency: holidays/special occasions only current occupational status: employed Travel in the last 8 weeks?: Inside the [place] Have you lived/traveled outside US in past 30 days?: No Contact w/someone who lives/traveled outside US past 30 days?: No Exposure to someone with infectious disease in past 14 days?: No Do you have a fever (greater than 100.4 F or 38 C)?: No Have you tested positive for COVID-19?: No Exposed to someone with COVID-19 in past 14 days?: No Do you have a sore throat?: No Do you have a cough?: No Do you have any weakness?: No Do you have any diarrhea?: No Are you experiencing any unusual bleeding?: No Do you have any muscle aches/pain?: No Do you have any abdominal pain?: No Are you experiencing loss of taste or smell?: No Other Medical History Have you received the Pneumonia Vaccine: No ROS Obtained: Yes All systems reviewed & no additional complaints except as documented and Yes Systems reviewed as appropriate & no additional complaints except as documented Physical Exam General General appearance: alert and in no apparent distress Head Head exam: atraumatic, normocephalic and normal inspection Eye Eye exam: Present normal appearance, PERRL and EOMI; Absent scleral icterus ENT ENT exam: Present normal exam and normal external ear exam Neck Neck exam: Present normal inspection and full ROM Chest Chest inspection: Present normal inspection and symmetric chest wall rise Respiratory Respiratory exam: Present normal lung sounds bilaterally; Absent respiratory distress or wheezes Cardiovascular Cardiovascular exam: Present regular rate, normal rhythm and normal heart sounds Abdominal Exam Abdominal exam: Present soft and distention; Absent tenderness, guarding or rebound Extremities Exam Extremities exam: Present normal inspection and full ROM Back Exam Back exam: Present normal inspection and full ROM Neurological Exam Neurological exam: Present alert, oriented X3, CN II-XII intact, normal gait and reflexes normal; Absent motor sensory deficit Psychiatric Psychiatric exam: Present normal affect and normal mood Skin Skin exam: Present warm and dry Medical Decision Making Medical Records Medical records reviewed: Yes I reviewed the patient's medical records. Screening: Per USPSTF and CDC recommendations, given the prevalence of disease in our region, it is our hospital?s policy to screen for HIV and viral Hepatitis for all patients aged 18 and over and those with ongoing risk factors. Colby Inquiry Pt receiving controlled substance: No Vital Signs: 02/03/25 21:50 02/03/25 21:56 02/03/25 22:00 Temperature 98.7 F Temperature Source Oral Pulse Rate 79 83 Pulse Rate [Left] 82 Respiratory Rate 14 Blood Pressure Blood Pressure [Right Arm] 133/72 Blood Pressure Mean Blood Pressure Mean [Right Arm] 92 Blood Pressure Source [Right Arm] Automatic Cuff Blood Pressure Position [Right Arm] Sitting 02 Sat by Pulse Oximetry 100 100 100 Oxygen Delivery Method Room Air 02/03/25 22:00 02/03/25 23:19 Temperature 97.9 F Temperature Source Oral Pulse Rate 76 Pulse Rate [Left] Respiratory Rate 16 Blood Pressure 128/73 110/62 Blood Pressure [Right Arm] Blood Pressure Mean 79 Blood Pressure Mean [Right Arm] Blood Pressure Source [Right Arm] Blood Pressure Position [Right Arm] 02 Sat by Pulse Oximetry Oxygen Delivery Method Room Air Lab Data Lab results reviewed: Yes I reviewed the patient's lab results. Lab Results 02/03/25 21:51: WBC 7.5, RBC 4.32, Hgb 12.9, Hct 37.6, MCV 87.0, MCH 29.9, MCHC 34.3, RDW 12.7, Plt Count 316, MPV 9.7, Neut % (Auto) 36.8 L, Lymph % (Auto) 52.2 H, Spalding % (Auto) 6.5, Eos % (Auto) 3.7, Baso % (Auto) 0.7, Neut # (Auto) 2.8, Lymph # (Auto) 3.9, Spalding # (Auto) 0.5, Eos # (Auto) 0.3, Baso # (Auto) 0.1, Sodium 140, Potassium 3.7, Chloride 105, Carbon Dioxide 28, Anion Gap 10.7, BUN 11, Creatinine 0.90, Estimated Creat Clear 159, Estimated GFR 78, Est GFR ( Amer) 95, Glucose 78, Calcium 8.8, Total Bilirubin 0.4, AST 36, ALT 29, Alkaline Phosphatase 47, Total Protein 6.3, Albumin 3.6, Globulin 2.7, Albumin/Globulin Ratio 1.3, TSH 2.55, Free T4 0.92, Serum HCG, Qual Negative, Levetiracetam <2.0 L 02/03/25 21:51 02/03/25 21:51 Orders (Tests/Meds): ED MEDICATIONS Discontinued Medications Generic Name Dose Route Start Last Admin Trade Name Freq PRN Reason Stop Dose Admin Levetiracetam 2,000 mg/ Sodium 120 mls @ 240 mls/hr 02/03/25 21:53 02/03/25 23:16 Chloride IV 02/03/25 21:54 Infused ONCE ONE Infusion ORDERS Category Date Time Status CBC w/Auto Diff [Complete Blood Count Auto Diff] Stat Lab 02/03/25 21:51 Completed CMP [Comprehensive Metabolic Panel] Stat Lab 02/03/25 21:51 Completed Free T4 (Free Thyroxine) Stat Lab 02/03/25 21:51 Completed HCG Qualitative, Serum Stat Lab 02/03/25 21:51 Completed Levetiracetam (Keppra) Stat Lab 02/03/25 21:51 Completed TSH [Thyroid Stimulating Hormone] Stat Lab 02/03/25 21:51 Completed Medical Decision Narrative: On arrival, patient was a healthy 24-year-old female with a history of nonepileptic seizures who presented to the emergency department with seizure-like activity. On arrival, patient was hemodynamically stable with unremarkable vital signs. Normal glucose per EMS. Differential includes but not limited to: Epileptic seizures, nonepileptic seizure, medication noncompliance, infection, amongst others. Patient's labs were reviewed and interpreted by myself: CBC showed no leukocytosis, hemoglobin was stable. CMP was unremarkable. test was negative. Patient was seen a few days prior with similar, patient had normal alcohol urine drug screen at that time. Normal CT head was obtained at that time as well, therefore not felt to be indicated today as patient has not had any associated trauma. Patient has been diagnosed with nonepileptic seizures in the past per neurology's note. Patient was given a dose of Keppra in the emergency department and patient started taking Lamictal as prescribed a few days ago. Given concern for possible component of epilepsy, I did this case the case with [facility] neurology they felt that given that patient had been previously diagnosed with nonepileptic seizures, patient can continue on her already scheduled medications and patient can follow-up with her neurologist as scheduled. Patient has an MRI scheduled on Tuesday. Patient was otherwise discharged home in stable condition, return precautions were discussed. Patient was already back to her baseline and had a normal neuro exam. Critical Care Critical Care Time Critical Care Time: No
[2025-02-03 22:06] LABS: Hematocrit 37.6 % (37.0-47.0); Hemoglobin 12.9 g/dL (12.2-16.2); Immature Granulocytes % 0.1 %; Mean Corpuscular HGB Conc 34.3 g/dL (31.8-35.4); Mean Corpuscular Hemoglobin 29.9 pg (27.0-31.2); Mean Corpuscular Volume 87.0 fl (81-99); Nucleated Red Blood Cells % 0 %; Platelet Count 316 K/mm3 (142-424); Red Blood Count 4.32 M/mm3 (4.20-5.40); Red Cell Distribution Width-SD 40.3 fL; White Blood Count 7.5 K/mm3 (4.8-10.8)
[2025-02-03 22:08] LABS: Albumin Level 3.6 g/dl (3.5-5.0); Chloride 105 mmol/L (98-107)
[2025-02-03 22:09] LABS: Potassium 3.7 mmoL/L (3.5-5.1); Sodium 140 mmol/L (136-145)
[2025-02-03 22:11] LABS: Alanine Aminotransferase 29 U/L (12-78); Anion Gap 10.7 mEq/L (5-15); Aspartate Amino Transferase 36 U/L (14-36); Blood Urea Nitrogen 11 mg/dl (7-17); Carbon Dioxide 28 mmol/L (22.0-30.0); Creatinine Clearance Estimated 159 mL/min (50-200); Creatinine,Serum 0.90 mg/dl (0.52-1.04); Estimated Glomerular Filt Rate 78 ml/min (>60); GFR (African American) 95 ML/MIN (>60)
[2025-02-03 22:12] LABS: Albumin/Globulin Ratio 1.3 (1.1-1.8); Alkaline Phosphatase 47 U/L (38-126); Bilirubin,Total 0.4 mg/dl (0.2-1.3); Calcium 8.8 mg/dl (8.4-10.2); Globulin 2.7 g/dL (1.3-3.2); Glucose 78 mg/dl (74-100); Total Protein,Serum 6.3 g/dl (6.3-8.2)
[2025-02-03] MEDS: levETIRAcetam 2,000 MG in 0.9 % SODIUM CHLORIDE 100 ML 240 MG IV (22:12)
[2025-02-03 22:15] LABS: HCG Qualitative, Serum Negative (Negative)
[2025-02-03 22:42] LABS: Thyroid Stimulating Hormone 2.55 uIU/mL (0.465-4.68)
[2025-02-03 23:03] LABS: Free T4 (Free Thyroxine) 0.92 ng/dl (0.78-2.19)
[2025-02-03 23:19] VITALS: BP 110/62; PULSE 76; RESP 16; TEMP 36.6; O2SAT 98
== END 2025-02-03 23:24 | disposition home or self-care (01) ==
PROVIDERS: Emergency Provider Student in an Organized Health Care Education/Training Program
DX: R56.9 Unspecified convulsions (principal)
CPT/HCPCS: 80053; 80177; 84439; 84443; 84703; 85025; 96374; 99284; J1953

== ENCOUNTER 2025-02-05 10:11 | Outpatient (CLI) | payer OTHER, SELFPAY ==
--- OUTSIDE RECORDS SUMMARY | 2025-02-05 10:13 | XMS_ITS | Encounter Summary ---
Author Organization [facility] Address [address] [place] [address] Care Team Providers Care Va Underwriter Name Role Phone Caty Neil APRN Primary Care Provider [phone] Reason for Referral * Consultation (Routine) - Authorized Specialty Diagnoses / Procedures Referred By Jennie t Referred To Contact Psychiatry Diagnoses Conversion disorder with seizures or convulsions Sofie Anglin APRN [address] [place] [address] Phone: tel: fax: Referral ID Status Reason Start Date Expiration Date Visits Requested Visits Authorized [id number] Authorized Specialty Services Required 10/13/2023 04/13/2025 1 1 Encounter Details Date Type Department Care Team (Late st Contact Info) Description 10/13/2023 Community [facility] [address] [place] [address] Sofie Anglin APRN [address] [place] [address] Conversion disorder with seizures or [...] Primary documented in this encounter Care Teams Va Underwriter Relationship Specialty Start Date End Date Caty Neil APRN [address] [place] [address] PCP - General 09/19/20 documented as of this encounter
--- OUTSIDE RECORDS SUMMARY | 2025-02-05 10:13 | XMS_ITS | Encounter Summary ---
Author Organization [facility] Address [address] [place] [address] Care Team Providers Care Data Communications Technician Name Role Phone Caty Neil APRN Primary Care Provider [phone] Encounter Details Date Type Department Care Team (Late st Contact Info) Description 10/13/2023 Community [facility] [address] [place] [address] Carley Hodges, DO [address] [place] [address] [address] [place] [address] Social History Tobacco Use Types [...] on filedocumented in this encounter Care Teams Data Communications Technician Relationship Specialty Start Date End Date Caty Neil APRN [address] [place] [address] PCP - General 09/19/20 documented as of this encounter
--- OUTSIDE RECORDS SUMMARY | 2025-02-05 10:13 | XMS_ITS | Clinical Summary ---
Author Organization Healthcare Address [address] [place] [address] Care Team Providers Care Birth Certificate Clerk Name Role Phone Caty Neil APRN Primary Care Provider [phone] Family History Medical History Relation Name Comments [...] 19+ 3-dose series) 2021 [facility]-Pap Smear 12/25/2023 [id number] Vaccine (1 - 20 24-25 season) 2025 [...] complete this topic Insurance MEDICAID Care Teams Birth Certificate Clerk Relationship Specialty Start Date End Date Caty Neil APRN [address] [place] [id number] PCP - General 09/19/20
--- NOTE | 2025-02-05 10:30 | MR_ITS ---
FINAL REPORT TECHNIQUE: Multiplanar MR, without and with contrast administration CLINICAL HISTORY: seizure like activity PT STATED SHE HAD SEIZURES ON TUESDAY AND TUESDAY FINDINGS: Diffusion sequences show no signal abnormalities to indicate acute infarct. Exam is somewhat degraded by patient motion. The brain parenchyma is homogeneous with normal signal pattern. There is no evidence of Chiari malformation. Ventricles are normal. The hippocampal formation appears symmetric. No edema or hemorrhage is seen. Major vessel flow-voids are intact. The 7th and 8th nerve root complexes are intact. Following contrast administration, there is no mass or abnormal parenchymal enhancement. IMPRESSION: Unremarkable MR evaluation of the brain, without and with contrast Reviewed, Interpreted and Dictated by Jose Fournier MD Transcribed by Isabella Yanes Authenticated and . [facility]
[2025-02-05] MEDS: GADOTERIDOL INJ 20ML SYRINGE 20 ML IV (11:28)
[2025-02-05] MEDS: SODIUM CHLORIDE 0.9% 10ML SYR (RAD ONLY) 10 ML IV (11:28)
== END 2025-02-05 23:59 | disposition home or self-care (01) ==
LOC: RAD 10:11
PROVIDERS: PCP Nurse Practitioner; Visit Provider Specialist
DX: F44.5 Conversion disorder with seizures or convulsions (principal); R45.86 Emotional lability
CPT/HCPCS: 70553; A9576

== ENCOUNTER 2025-03-16 07:44 | Emergency (ER) | payer OTHER, SELFPAY ==
[2025-03-16] VITALS (14 sets, daily range): BP systolic 75–131; BP diastolic 39–72; PULSE 43–95; RESP 13–18; TEMP 36.8–36.9; O2SAT 96–100; BMI 40.6
--- NOTE | 2025-03-16 07:49 | ECG_ITS ---
APPROVED REPORT Exam: Resting ECG HR:88 bpm ECG Measurements Heart Rate 88 AXES IL 142 P 74 QRSd 98 QRS 82 QT 346 T 70 QTc 392 Conclusion SINUS RHYTHM WITH SINUS ARRHYTHMIA NORMAL ECG UNCONFIRMED REPORT Electronically signed by : BEN ALBERTO, 03/17/2025 02:18:06
--- NOTE | 2025-03-16 07:52 | CT_ITS ---
PROCEDURE INFORMATION: Exam: CT Head Without Contrast Exam date and time: 03/16/2025 9:25 AM Age: 24 years old Clinical indication: Other: Seizure; Additional info: Seizure like activity TECHNIQUE: Imaging protocol: Computed tomography of the head without contrast. Radiation optimization: All CT scans at this facility use at least one of these dose optimization techniques: automated exposure control; mA and/or kV adjustment per patient size (includes targeted exams where dose is matched to clinical indication); or iterative reconstruction. COMPARISON: MR HEAD/BRAIN WO/W CON 02/05/2025 10:49 AM FINDINGS: Brain: Normal. No hemorrhage. Unremarkable white matter. No mass effect. Cerebral ventricles: No ventriculomegaly. Paranasal sinuses: Visualized sinuses are unremarkable. No fluid levels. Mastoid air cells: Visualized mastoid air cells are well aerated. Bones: Unremarkable. No acute fracture. Soft tissues: Unremarkable. IMPRESSION: No acute intracranial abnormality.
--- NOTE | 2025-03-16 07:54 | XR_ITS ---
PROCEDURE INFORMATION: Exam: XR Chest Exam date and time: 03/16/2025 10:07 AM Age: 24 years old Clinical indication: Pain; Chest pressure; Additional info: Cp, elevated d-dimer TECHNIQUE: Imaging protocol: Radiologic exam of the chest. Views: 1 view. COMPARISON: CT ANGIO CHEST PE PROTOCOL 03/16/2025 9:27 AM FINDINGS: Lungs: Unremarkable. No consolidation. Pleural spaces: Unremarkable. No pleural effusion. No pneumothorax. Heart/Mediastinum: Unremarkable. No cardiomegaly. Bones/joints: Unremarkable. IMPRESSION: No acute findings.
--- NOTE | 2025-03-16 07:55 | ED_ITS ---
Discharge Plan Disposition Patient Disposition: Home, Self-Care Prescriptions Prescriptions: No Action albuterol sulfate [Ventolin HFA] 90 mcg/actuation HFA aerosol inhaler inhalation Patient Comments: INHALE 1 PUFF BY MOUTH EVERY 4 HOURS norgestimate-ethinyl estradiol [Tri-VyLibra Lo] 0.18/0.215/0.25 mg-0.025 mg tablet 1 tab PO Patient Comments: TAKE ONE TABLET BY MOUTH ONCE DAILY prazosin 1 mg capsule 1 mg PO HS Qty: 30 2RF Rx Instructions: Do not take systolic blood pressure is = or < 100. folic acid 1 mg tablet 1 mg PO DAILY Qty: 30 2RF lamotrigine 25 mg tablet 50 mg PO DAILY Qty: 30 0RF Patient Comments: Patient stated taking 1 daily Referrals Follow up/Referrals: Tania Mckeon APRN [Primary Care Provider, Medical] - See instructions Activity Restrictions/Add. Instructions Additional Instructions/Restrictions: At this time it was felt you are safe to be discharged home. If new or worsening symptoms please do not hesitate to return the emergency department. If your symptoms persist please follow-up with your family doctor within the next week for continued evaluation. Clinical Impressions Clinical Impression: Seizure-like activity, Chest pain Instructions Patient Instructions: DI for Seizure Disorder in Adults, DI for Seizure (Not Epilepsy/Seizure Disorder), DI for Seizure Disorder in Child Print Language Print Language: Kiswahili Discharge ED Provider: Jayden Warner General Chief Complaint: Seizure Stated Complaint: CP Time Seen by Provider: 03/16/25 07:46 History of Present Illness HPI narrative: Patient is a 24-year-old female with past medical history of seizure-like activity pending multiple evaluations currently getting evaluated by Dr. Baugh on lamotrigine who presents to the emergency department for evaluation of seizure-like activity and chest pain. With the respect to her seizure-like activity she has had episodes over the last 4 years, characterized as generalized, violent , intermittent hair pulling, most of the time the eyes are closed sometimes the eyes are rolled back. She has been evaluated by previous neurologist who are of the opinion that it is nonepileptic in nature and is currently pending evaluation by Dr. Baugh. With respect to her chest pain onset was acute, substernal, does not radiate not particular modifiable. She was concerned that her blood pressure prehospital had a top number greater than 160 and was concerned it may be stroke level . No other acute complaints at this time. Patient has approximately 2 seizures a day lasting between 5 and 15 minutes with the above described characteristics. Today she had seizure-like activity while they were on the way here to be seen for chest pain according to mother however patient states that the chest pain started after the seizure-like activity. At bedside patient was initially groggy but rapidly started answering questions. Please note that above description of symptoms, in this electronic medical record under categorization of recalled from ER triage doctor by RN are reflective of an initial nursing assessment, however, is not reflective of my full history and physical exam that was personally taken and clarified. Consequentially, this preceding description of symptoms, which may include the patient's categorized chief complaint in the EMR, do not reflect my personal clinical impression, and the ultimate description of history of present illness and patient stated complaints should be deferred to this section of the note. Unless stated otherwise or congruent with this section of the note, additional signs, symptoms, or incongruence should be interpreted as inaccurate with my clinical impression. Related Data Home Medications ?Medication ?Instructions ?Recorded ?Confirmed albuterol sulfate 90 mcg/actuation inhalation 01/29/25 03/06/25 aerosol inhaler (Ventolin HFA) norgestimate 0.18 mg/0.215mg/0.25 1 tab PO 01/29/25 mg-ethinyl estradiol 0.025 mg tablet (Tri-VyLibra Lo) Previous Rx's ?Medication ?Instructions ?Recorded lamotrigine 25 mg tablet 50 mg (2 x 25 mg) PO DAILY # 30 tabs 03/01/25 prazosin 1 mg capsule 1 mg PO HS #30 caps 03/06/25 folic acid 1 mg tablet 1 mg PO DAILY #30 tabs 03/07 Allergies Allergy/AdvReac Type Severity Reaction Status Date / Time metoprolol Allergy Unknown blood Verified 03/06/25 10:11 pressure elevation Penicillins Allergy Rash Verified 03/06/25 10:11 [facility] Disclaimer: The information contained in this section may have been updated after the patient was seen, as this information can be updated by other users. Surgical History History of liver biopsy Family History Other Alcoholism Anemia Asthma Cancer Diabetes FHx: mental illness Heart attack Hyperlipidemia Hypertension Kidney disease Stroke Substance abuse Social History Smoking Status: Current every day smoker alcohol intake: current alcohol intake frequency: holidays/special occasions only current occupational status: employed Travel in the last 8 weeks?: Inside the [place] Have you lived/traveled outside US in past 30 days?: No Contact w/someone who lives/traveled outside US past 30 days?: No Exposure to someone with infectious disease in past 14 days?: No Do you have a fever (greater than 100.4 F or 38 C)?: No Have you tested positive for COVID-19?: No Exposed to someone with COVID-19 in past 14 days?: No Do you have a sore throat?: No Do you have a cough?: No Do you have any weakness?: No Do you have any diarrhea?: No Are you experiencing any unusual bleeding?: No Do you have any muscle aches/pain?: No Do you have any abdominal pain?: No Are you experiencing loss of taste or smell?: No Other Medical History Have you received the Pneumonia Vaccine: No ROS Obtained: Yes Systems reviewed as appropriate & no additional complaints except as documented Physical Exam General General appearance: alert and in no apparent distress Head Head exam: atraumatic and normocephalic Eye Eye exam: Present PERRL and EOMI ENT ENT exam: Present mucous membranes moist Neck Neck exam: Present normal inspection Chest Chest inspection: Present normal inspection and symmetric chest wall rise Respiratory Respiratory exam: Present normal lung sounds bilaterally; Absent respiratory distress Cardiovascular Cardiovascular exam: Present regular rate and normal rhythm Abdominal Exam Abdominal exam: Present soft; Absent tenderness Extremities Exam Extremities exam: Present normal inspection Neurological Exam Neurological exam: Present alert and CN II-XII intact; Absent motor sensory deficit Psychiatric Psychiatric exam: Present normal affect Skin Skin exam: Present warm and dry HEART Score HEART Score HEART Score assessment performed?: Yes History (anamnesis): Slightly suspicious ECG: Normal Age: <45 years Risk factors: No known risk factors Troponin: </= normal limit HEART Score: 0 Critical Care Critical Care Time Critical Care Time: No Medical Decision Making Colby Inquiry Pt receiving controlled substance: No Vital Signs Vital Signs: 03/16/25 07:45 03/16/25 07:45 03/16/25 08:00 Temperature 98.3 F 98.3 F Temperature Source Oral Oral Pulse Rate 95 H 86 Pulse Rate [Right] 95 H Respiratory Rate 18 18 14 Blood Pressure 131/72 131/72 Blood Pressure [Right Arm] 131/72 Blood Pressure Mean [Right Arm] 91 Blood Pressure Source Automatic Cuff Blood Pressure Source [Right Arm] Automatic Cuff Blood Pressure Position Supine Blood Pressure Position [Right Arm] Supine 02 Sat by Pulse Oximetry 100 100 100 Oxygen Delivery Method Room Air Room Air Room Air 03/16/25 08:01 03/16/25 08:08 03/16/25 08:30 Temperature Temperature Source Pulse Rate 86 88 Pulse Rate [Right] Respiratory Rate 14 13 Blood Pressure 111/54 L 109/49 L Blood Pressure [Right Arm] Blood Pressure Mean [Right Arm] Blood Pressure Source Blood Pressure Source [Right Arm] Blood Pressure Position Blood Pressure Position [Right Arm] 02 Sat by Pulse Oximetry 99 100 100 Oxygen Delivery Method Room Air Room Air Room Air 03/16/25 09:00 03/16/25 09:04 03/16/25 09:06 Temperature Temperature Source Pulse Rate 78 78 80 Pulse Rate [Right] Respiratory Rate 15 15 16 Blood Pressure 75/41 L 83/39 L 80/41 L Blood Pressure [Right Arm] Blood Pressure Mean [Right Arm] Blood Pressure Source Blood Pressure Source [Right Arm] Blood Pressure Position Blood Pressure Position [Right Arm] 02 Sat by Pulse Oximetry 96 96 96 Oxygen Delivery Method Room Air Room Air Room Air 03/16/25 10:02 03/16/25 10:30 03/16/25 11:00 Temperature Temperature Source Pulse Rate 43 L 78 81 Pulse Rate [Right] Respiratory Rate 14 17 Blood Pressure 93/65 L 93/54 L 107/53 L Blood Pressure [Right Arm] Blood Pressure Mean [Right Arm] Blood Pressure Source Blood Pressure Source [Right Arm] Blood Pressure Position Blood Pressure Position [Right Arm] 02 Sat by Pulse Oximetry 100 97 96 Oxygen Delivery Method Room Air Room Air Room Air 03/16/25 11:30 03/16/25 12:00 Temperature Temperature Source Pulse Rate 75 82 Pulse Rate [Right] Respiratory Rate 14 17 Blood Pressure 90/57 L 100/53 L Blood Pressure [Right Arm] Blood Pressure Mean [Right Arm] Blood Pressure Source Blood Pressure Source [Right Arm] Blood Pressure Position Blood Pressure Position [Right Arm] 02 Sat by Pulse Oximetry 97 97 Oxygen Delivery Method Room Air Room Air Lab Data Labs: Lab Results 03/16/25 07:58: WBC 7.8, RBC 4.31, Hgb 12.8, Hct 37.4, MCV 86.8, MCH 29.7, MCHC 34.2, RDW 12.3, Plt Count 316, MPV 9.5, Neut % (Auto) 46.5, Lymph % (Auto) 45.1, [place] % (Auto) 5.8, Eos % (Auto) 1.7, Baso % (Auto) 0.6, Neut # (Auto) 3.6, Lymph # (Auto) 3.5, [place] # (Auto) 0.5, Eos # (Auto) 0.1, Baso # (Auto) 0.1, D-Dimer 0.83 H, Sodium 137, Potassium 3.4 L, Chloride 106, Carbon Dioxide 25, Anion Gap 9.4, BUN 7, Creatinine 0.90, Estimated Creat Clear 166, Estimated GFR 78, Est GFR ( Amer) 95, Glucose 104 H, Calcium 9.4, Magnesium 1.8, Total Bilirubin 0.4, AST 24, ALT 25, Alkaline Phosphatase 50, Troponin I < 0.01, Total Protein 7.2, Albumin 3.9, Globulin 3.3 H, Albumin/Globulin Ratio 1.2, TSH 1.88, Free T4 0.88, Serum HCG, Qual Negative, HCV Ab JANESSA w/Rflx PCR Qn Negative, HIV Ag/Ab Combo Qual Negative 03/16/25 08:08: VBG pH 7.28 L, VBG pCO2 51.9 H, VBG pO2 30.7, VBG HCO3 24.1, VBG Total CO2 25.7, VBG O2 Saturation 54.1, VBG Base Excess -2.6 L, VBG Lactic Acid 2.4 H 03/16/25 09:45: Urine Color Yellow, Urine Appearance Clear, Urine pH 6.0, Ur Specific [place] 1.025, Urine Protein Negative, Urine Glucose (UA) Negative, Urine Ketones Negative, Urine Blood Trace-i, Urine Nitrate Negative, Urine Bilirubin Negative, Urine Urobilinogen 0.2, Ur Leukocyte Esterase Negative, Urine RBC Occasional, Urine WBC None, Ur Squamous Epith Cells 5-10, Urine Bacteria 1+, Urine Opiates Screen Negative, Urine Methadone Screen Negative, Ur Barbituates Screen Negative, Ur Phencyclidine Scrn Negative, Ur Amphetamines Screen Negative, U Benzodiazepines Scrn Negative, Urine Cocaine Screen Negative, U Marijuana (THC) Screen Negative 03/16/25 10:55: Troponin I < 0.01 03/16/25 07:58 03/16/25 07:58 Response Orders (Tests/Meds): ED MEDICATIONS Generic Name Dose Route Start Last Admin Trade Name Freq PRN Reason Stop Dose Admin Sodium Chloride 10 ml 03/16/25 09:24 03/16/25 09:27 Sodium Chloride 0.9% 10ml Syr (Rad Only) IV 04/15/25 09:23 10 ml NEEDED PRN Administration Maintain IV Site Discontinued Medications Generic Name Dose Route Start Last Admin Trade Name Freq PRN Reason Stop Dose Admin Acetaminophen 1,000 mg 03/16/25 08:01 03/16/25 08:23 Acetaminophen 1,000mg/100ml Vial IV 03/16/25 08:02 1,000 mg ONCE ONE Administration Aspirin 324 mg 03/16/25 08:01 03/16/25 08:21 Aspirin 81mg Chewable Tablet PO 03/16/25 08:02 324 mg ONCE ONE Administration Iopamidol 70 ml 03/16/25 09:24 03/16/25 09:27 Iopamidol-370 (76%);100ml Bottle IV 03/16/25 09:25 70 ml ONCE ONE Administration Sodium Chloride 50 ml 03/16/25 09:24 03/16/25 09:27 0.9 % Sodium Chloride 50 Ml Vial IV 03/16/25 09:25 50 ml ONCE ONE Administration ORDERS Category Date Time Status CT angio chest PE protocol Stat Cat Scan 03/16/25 09:[address] head/brain wo con Stat Cat Scan 03/16/25 07:52 Completed CXR --portable [XR chest portable] Stat Exams 03/16/25 07:54 Completed CBC w/Auto Diff [Complete Blood Count Auto Diff] Stat Lab 03/16/25 07:58 Completed CMP [Comprehensive Metabolic Panel] Stat Lab 03/16/25 07:58 Completed D-Dimer Stat Lab 03/16/25 07:58 Completed Drug Screen,Urine Stat Lab 03/16/25 09:45 Completed Free T4 (Free Thyroxine) Stat Lab 03/16/25 07:58 Completed HCG Qualitative, Serum Stat Lab 03/16/25 07:58 Completed HIV Combo Stat Lab 03/16/25 07:58 Completed Hepatitis C Ab Qual. W/ RFX Stat Lab 03/16/25 07:58 Completed Lactic Acid Follow Up (RFLX 1) Stat Lab 03/16/25 12:12 Ordered MG [Magnesium] Stat Lab 03/16/25 07:58 Completed TSH [Thyroid Stimulating Hormone] Stat Lab 03/16/25 07:58 Completed Trop I [Troponin I] Stat Lab 03/16/25 07:58 Completed Troponin I Q3H Lab 03/16/25 10:55 Completed Troponin I Q3H Lab 03/16/25 14:00 Ordered UA [Urinalysis and Microscopic] Stat Lab 03/16/25 09:45 Completed VBG [Venous Blood Gas] Stat RT 03/16/25 08:08 Completed ECG Data Tracing #1: ECG Narrative: Independently interpreted by me rate is 88, rhythm is regular, axis is normal, no ST elevation in anatomical contiguous leads, QTc 392. MDM Narrative Medical Decision Narrative: In summary patient is a 24-year-old female with past medical history of scrota above who presents to the emergency department for evaluation of 2 separate complaints including chest pain and seizure-like activity. With respect to her seizure-like activity notes will be reviewed from recent neurology evaluation, workup we conducted with hematologic labs and noncontrasted CT scan of the head. Patient had rapid return to cognitive baseline and has a nonfocal neurologic exam my concern for H[employer] PROFESSION[employer] intracranial lesion is low, differential includes epileptic versus nonepileptic seizures. With the specter chest pain differential includes ACS, noncardiac chest pain, pulmonary embolism, among others. Workup with respect to this will be conducted with EKG, troponin, D- dimer, hematologic labs, chest x-ray. Initial interventions include Tylenol, aspirin. Dr. Baugh recent evaluation reviewed by me, patient got a MRI with and without contrast which was unremarkable in January. Patient has been seen by previous neurologist and had prolonged EEG monitoring with several spells without EEG correlation from diagnosis consistent with psychogenic nonepileptic seizures although patient did have an abnormal baseline EEG and MRI was obtained with the results unremarkable listed above. She was placed on lamotrigine for mood control possibly triggering atypical seizure-like activity which has weight neutral side effects. Initial hematologic labs reviewed by me no significant leukocytosis no transfusable anemia mildly elevated D-dimer, acid-base status minimal derangement which I suspect was a transport issue as there is very minimally elevated lactate, no THEODORE or critical electrolyte abnormality serial troponins flat, CTA chest will be ordered given elevated D-dimer as well as noncontrasted CT scan of the head. Noncontrasted CT scan head and CTA chest nonactionable urinalysis interpreted by me and not consistent with infection coingestants negative. Upon repeat evaluation patient continued to have no seizure-like activity in the emergency department and is appropriate for outpatient management at this time was given return precautions.
--- OUTSIDE RECORDS SUMMARY | 2025-03-16 08:01 | XMS_ITS | Clinical Summary ---
Author Organization Healthcare Address [address] [place] [address] Care Team Providers Care Internet Sales Representative Name Role Phone Caty Neil APRN Primary Care Provider [phone] Family History Medical History Relation Name Comments [...] 19+ 3-dose series) 2021 [facility]-Pap Smear 12/25/2023 [id number] Vaccine (1 - 20 24-25 season) 2025 [...] complete this topic Insurance MEDICAID Care Teams Internet Sales Representative Relationship Specialty Start Date End Date Caty Neil APRN [address] [place] [id number] PCP - General 09/19/20
--- OUTSIDE RECORDS SUMMARY | 2025-03-16 08:01 | XMS_ITS | Encounter Summary ---
Author Organization [facility] Address [address] [place] [address] Care Team Providers Care Director Career Name Role Phone Caty Neil APRN Primary Care Provider [phone] Reason for Referral * Consultation (Routine) - Authorized Specialty Diagnoses / Procedures Referred By Jennie t Referred To Contact Psychiatry Diagnoses Conversion disorder with seizures or convulsions Sofie Anglin APRN [address] [place] [address] Phone: tel: fax: Referral ID Status Reason Start Date Expiration Date Visits Requested Visits Authorized [id number] Authorized Specialty Services Required 10/13/2023 04/13/2025 1 1 Encounter Details Date Type Department Care Team (Late st Contact Info) Description 10/13/2023 Community [facility] [address] [place] [address] Sofie Anglin APRN [address] [place] [address] Conversion disorder with seizures or [...] Primary documented in this encounter Care Teams Director Career Relationship Specialty Start Date End Date Caty Neil APRN [address] [place] [address] PCP - General 09/19/20 documented as of this encounter
--- OUTSIDE RECORDS SUMMARY | 2025-03-16 08:01 | XMS_ITS | Encounter Summary ---
Author Organization [facility] Address [address] [place] [address] Care Team Providers Care Wastewater Process Engineer Name Role Phone Caty Neil APRN Primary Care Provider Encounter Details Date Type Department Care Team (Late st Contact Info) Description 10/13/2023 Community Orders Community [facility] [address] [place] [address] Carley Hodges, DO [address] [place] [address] [address] [place] [address] Social History Tobacco Use Types [...] on filedocumented in this encounter Care Teams Wastewater Process Engineer Relationship Specialty Start Date End Date Caty Neil APRN [address] [place] [address] PCP - General 09/19/20 documented as of this encounter
[2025-03-16 08:12] LABS: VBG HCO3 24.1 mmol/L (23-30); VBG PH 7.28 mmol/L (7.31-7.41); VBG PO2 30.7 mmol/L (28-40)
[2025-03-16 08:14] LABS: Hematocrit 37.4 % (37.0-47.0); Hemoglobin 12.8 g/dL (12.2-16.2); Immature Granulocytes % 0.3 %; Mean Corpuscular HGB Conc 34.2 g/dL (31.8-35.4); Mean Corpuscular Hemoglobin 29.7 pg (27.0-31.2); Mean Corpuscular Volume 86.8 fl (81-99); Nucleated Red Blood Cells % 0 %; Platelet Count 316 K/mm3 (142-424); Red Blood Count 4.31 M/mm3 (4.20-5.40); Red Cell Distribution Width-SD 39.6 fL; White Blood Count 7.8 K/mm3 (4.8-10.8)
[2025-03-16 08:14] LABS: Lactate Venous 2.4 mmol/L (0.4-2.0); VBG PCO2 51.9 mmol/L (35-51)
[2025-03-16] MEDS: ASPIRIN 81MG CHEWABLE TABLET 324 MG PO (08:21)
[2025-03-16] MEDS: ACETAMINOPHEN 1,000MG/100ML VIAL 1000 MG IV (08:23)
[2025-03-16 08:33] LABS: Alanine Aminotransferase 25 U/L (12-78); Albumin Level 3.9 g/dl (3.5-5.0); Albumin/Globulin Ratio 1.2 (1.1-1.8); Alkaline Phosphatase 50 U/L (38-126); Anion Gap 9.4 mEq/L (5-15); Aspartate Amino Transferase 24 U/L (14-36); Bilirubin,Total 0.4 mg/dl (0.2-1.3); Blood Urea Nitrogen 7 mg/dl (7-17); Calcium 9.4 mg/dl (8.4-10.2); Carbon Dioxide 25 mmol/L (22.0-30.0); Chloride 106 mmol/L (98-107); Creatinine Clearance Estimated 166 mL/min (50-200); Creatinine,Serum 0.90 mg/dl (0.52-1.04); Estimated Glomerular Filt Rate 78 ml/min (>60); GFR (African American) 95 ML/MIN (>60); Globulin 3.3 g/dL (1.3-3.2); Glucose 104 mg/dl (74-100); Magnesium 1.8 mg/dl (1.6-2.3); Potassium 3.4 mmoL/L (3.5-5.1); Sodium 137 mmol/L (136-145); Total Protein,Serum 7.2 g/dl (6.3-8.2)
[2025-03-16 08:35] LABS: HCG Qualitative, Serum Negative (Negative)
[2025-03-16 08:38] LABS: D-Dimer 0.83 ug/mL (0.0-0.5)
[2025-03-16 08:57] LABS: Troponin I < 0.01 ng/ml (0.00-0.034)
[2025-03-16 09:05] LABS: Thyroid Stimulating Hormone 1.88 uIU/mL (0.465-4.68)
[2025-03-16 09:08] LABS: Free T4 (Free Thyroxine) 0.88 ng/dl (0.78-2.19)
--- NOTE | 2025-03-16 09:13 | CT_ITS ---
PROCEDURE INFORMATION: Exam: CTA Chest With Contrast Exam date and time: 03/16/2025 9:27 AM Age: 24 years old Clinical indication: Pain; Chest pressure; Additional info: Cp tachy seizure like activity TECHNIQUE: Imaging protocol: Computed tomographic angiography of the chest with contrast. Exam focused on the arteries. 3D rendering (Not supervised by radiologist): MIP and/or 3D reconstructed images were created by the technologist. Radiation optimization: All CT scans at this facility use at least one of these dose optimization techniques: automated exposure control; mA and/or kV adjustment per patient size (includes targeted exams where dose is matched to clinical indication); or iterative reconstruction. Contrast material: ISOVUE 370; Contrast volume: 80 ml; Contrast route: INTRAVENOUS (IV); COMPARISON: No relevant prior studies available. FINDINGS: Pulmonary arteries: Suboptimal opacification of the pulmonary arteries. Aorta: Unremarkable. No aortic aneurysm. No aortic dissection. Lungs: The lungs are clear. Pleural spaces: Unremarkable. No pneumothorax. No pleural effusion. Heart: Normal heart size. No pericardial fluid. No significant coronary vessel atherosclerosis. Lymph nodes: 9 mm right hilar lymph node likely reactive. Otherwise, no mediastinal or hilar adenopathy. Bones/joints: Unremarkable. No acute fracture. Soft tissues: Unremarkable. Other findings: No filling defects suspicious for emboli. IMPRESSION: 1. No filling defects suspicious for emboli. 2. Normal heart size. No pericardial fluid. No significant coronary vessel atherosclerosis. 3. The lungs are clear.
[2025-03-16] MEDS: IOPAMIDOL-370 (76%);100ML BOTTLE 70 ML IV (09:27)
[2025-03-16] MEDS: SODIUM CHLORIDE 0.9% 10ML SYR (RAD ONLY) 10 ML IV (09:27)
[2025-03-16] MEDS: 0.9 % SODIUM CHLORIDE 50 ML VIAL IV (09:27)
[2025-03-16 09:36] LABS: Hepatitis C Ab Qual. W/ RFX NEGATIVE (Negative)
[2025-03-16 09:49] LABS: Microscopic, Urine URINE MICROSCOPIC (MICROSCOPIC)
[2025-03-16 09:56] LABS: Bilirubin,Urine Negative (Negative); Color,Urine YELLOW (Yellow); Glucose,Urine (UA) Negative (Negative); Ketones,Urine Negative (Negative); Leukocyte Esterase,Urine Negative (Negative); PH,Urine 6.0 (5.0-8.5); Protein,Urine Negative (Negative); Specific Gravity, Urine 1.025 (1.005-1.030); Urobilinogen,Urine 0.2 EU/dl (0.2)
[2025-03-16 10:08] LABS: Benzodiazepines Screen,Urine Negative ng/ml (<200)
[2025-03-16 10:09] LABS: Amphetamine/Metha Screen,Urine Negative ng/ml (<1000); Barbiturates Screen,Urine Negative ng/ml (<200)
[2025-03-16 10:12] LABS: Methadone Screen,Urine Negative ng/ml (<300); Opiate Screen,Urine Negative ng/ml (<300)
[2025-03-16 10:13] LABS: Phencyclidine Screen,Urine Negative ng/ml (<25)
[2025-03-16 10:18] LABS: Bacteria,Urine 1+ /lpf
[2025-03-16 10:19] LABS: RBC,Urine Occasional #/hpf (0-3)
[2025-03-16 11:42] LABS: Troponin I < 0.01 ng/ml (0.00-0.034)
[2025-03-16 12:12] LABS: Reflex Lactic Add Lactic Reflex
== END 2025-03-16 12:54 | disposition home or self-care (01) ==
PROVIDERS: Emergency Provider Emergency Medicine; PCP Nurse Practitioner
DX: R07.9 Chest pain, unspecified (principal); R56.9 Unspecified convulsions; F17.210 Nicotine dependence, cigarettes, uncomplicated
CPT/HCPCS: 70450; 71045; 71275; 80053; 80307; 81001; 82803; 83735; 84439; 84443; 84484; 84703; 85025; 85378; 86803; 87389; 93005; 96374; 99285; J0131; Q9967

== ENCOUNTER 2025-04-14 18:00 | Outpatient (CLI) | payer OTHER, SELFPAY | END 2025-04-14 23:59 | disposition home or self-care (01) | LOC: LAB.DROPOF 04-22 12:14 | PROVIDERS: PCP Nurse Practitioner; Visit Provider Nurse Practitioner | DX: J02.9 Acute pharyngitis, unspecified (principal) | CPT/HCPCS: 87070 ==